=== PATIENT | female | born 1980 ===

== ENCOUNTER 2022-06-11 12:05 | Outpatient (REF) | payer BC, SELFPAY ==
[2022-06-11 14:00] LABS: Hematocrit 43.4 % (37.0-47.0); Hemoglobin 15.9 g/dl (12.0-16.0); Mean Corpuscular HGB Conc 36.6 g/dl (31.0-35.0); Mean Corpuscular Hemoglobin 32.2 pg (27.0-33.0); Mean Corpuscular Volume 87.9 fL (80.0-98.0); Platelet Count 293 X10*3/uL (160-400); Red Blood Count 4.94 X10*6/uL (4.20-5.50); Red Cell Distribution Width 13.2 % (11.0-16.0); White Blood Count 11.6 X10*3/uL (4.8-10.8)
[2022-06-11 14:43] LABS: Erythrocyte Sedimentation Rate 6 MM/HR (0-20)
[2022-06-11 14:48] LABS: Alanine Aminotransferase 171 U/L (0-31); Albumin Level 4.1 g/dL (3.5-5.0); Alkaline Phosphatase 87 U/L (39-117); Anion Gap 18 (12-20); Aspartate Amino Transferase 670 U/L (5-31); Bilirubin Direct 0.2 mg/dL (0.0-0.5); Bilirubin Total 0.5 mg/dL (0.0-1.0); Blood Urea Nitrogen 9 mg/dL (9-16); Calcium 8.4 mg/dL (8.4-10.2); Carbon Dioxide 23 mmol/L (22-29); Chloride 100 mmol/L (96-108); Estimated Glomerular Filt Rate > 60; Glucose Random 68 mg/dL (60-115); Sodium 139 mmol/L (135-145); Total Protein 6.4 g/dL (6.5-8.0)
[2022-06-12 06:07] LABS: Potassium 1.8 mmol/L (3.3-5.1)
== END 2022-06-11 12:06 | disposition home or self-care (01) ==
LOC: HO.HMGCLDS 12:05
PROVIDERS: PCP Internal Medicine; Visit Provider Internal Medicine
DX: R50.9 Fever, unspecified (principal)
CPT/HCPCS: 36415; 80048; 80076; 85027; 85652

== ENCOUNTER 2022-06-18 13:57 | Inpatient (IN) | payer BC, SELFPAY ==
--- NOTE | ~2022-06-18 | CT_ITS ---
EXAMINATION: CT ABDOMEN AND PELVIS WITH CONTRAST CLINICAL INFORMATION: Elevated liver enzymes and lipase COMPARISON: Pelvic ultrasound 08/15/2016, CT abdomen pelvis 08/15/2016 TECHNIQUE: Multidetector volumetric images were obtained from the superior aspect of the liver through the pubic symphysis following administration 85 mL of Omnipaque 350 intravenous contrast. Sagittal and coronal reformatted images were obtained on the technologist's workstation. Oral contrast: No This CT examination was performed using dose optimization techniques as appropriate, variously including the following: *Automated exposure control *Adjustment of mA and/or kV according to patient size (this includes techniques or standardized protocols for targeted exams where dose is matched to indication/reason for exam; i.e. extremities or head) *Use of iterative reconstruction technique DLP: 274 mGy-cm FINDINGS: LUNG BASES: The visualized lung bases are unremarkable. LIVER, GALLBLADDER, AND BILIARY TREE: The liver is normal in size, shape, and attenuation. The left lobe of the liver wraps around the spleen. There is a 9 mm mass centrally in the right lobe of the liver that has appearances suggestive of a hemangioma that has been seen in the past and is unchanged in size (3:13). Polygonal shaped area of hypodensity seen adjacent to the gallbladder may represent focal fat filtration (3:22). No suspicious Focal hepatic lesion or biliary ductal dilatation is present. The gallbladder is unremarkable with no evidence of radiopaque gallstones, gallbladder wall thickening, or obvious pericholecystic inflammatory changes. PANCREAS: Unremarkable. SPLEEN: Unremarkable. ADRENAL GLANDS: Unremarkable. KIDNEYS AND URETERS: The kidneys are normal in size, shape, and attenuation. No hydronephrosis, hydroureter, or calculi seen. No perinephric stranding. BLADDER: Unremarkable. GASTROINTESTINAL TRACT: The small and large bowel are unremarkable. The appendix is unremarkable. ABDOMINAL WALL: No significant hernia is appreciated. LYMPH NODES: No retroperitoneal lymphadenopathy. VASCULAR: Unremarkable. PELVIC VISCERA: An IUD is present in the uterus. An abnormal adnexal mass is not seen. No free intraperitoneal fluid is present. OSSEOUS STRUCTURES: Unremarkable. CT/CT abdomen pelvis w IV con IMPRESSION: 1. A cause for the patient's elevated liver function tests and elevated liver enzymes has not been found. 2. Incidental note made of a stable 9 mm mass in the right lobe of the liver suggestive of a hemangioma. 3. Other incidental findings as described above. Fleischner guidelines were followed.
[2022-06-18 14:37] VITALS: BP 110/53; PULSE 95; RESP 18; TEMP 36.9; O2SAT 98; BMI 19.1
--- NOTE | 2022-06-18 14:46 | ECG_ITS ---
Test Reason : sob/abd pain Blood Pressure : / mmHG Vent. Rate : 091 BPM Atrial Rate : 091 BPM P-R Int : 098 ms QRS Dur : 088 ms QT Int : 384 ms P-R-T Axes : 069 074 039 degrees QTc Int : 472 ms Sinus rhythm with short NJ ST & T wave abnormality, consider anterior ischemia RSR' or QR pattern in V1 suggests right ventricular conduction delay Abnormal ECG When compared with ECG of 02-JUL-2013 13:56, T wave inversion now evident in Anterior leads Referred By: Lavelle Leslie Electronically Signed By:EMILY MEZA MD
--- NOTE | 2022-06-18 14:47 | ED_ITS ---
HPI - Recheck/Abnormal Lab/Rx General Chief Complaint: Recheck/Abnormal Lab/Rx <Lavelle Leslie DO - Last Filed: 06/18/22 14:50> Stated Complaint: abnormal labs <Lavelle Leslie DO - Last Filed: 06/18/22 14:50> Time Seen by Provider: 06/18/22 15:01 <Lavelle Leslie DO - Last Filed: 06/18/22 14:50> Source: patient <Joan Sexton NP - Last Filed: 06/18/22 18:02> Mode of arrival: ambulatory <Joan Sexton NP - Last Filed: 06/18/22 18:02> Limitations: no limitations <Joan Sexton NP - Last Filed: 06/18/22 18:02> History of Present Illness HPI narrative: Is a 42-year-old female who comes into the emergency room for abnormal labs. Per patient last Saturday she was seen at urgent care with complaints of generalized malaise, muscle cramps, fatigue and had outpatient labs. She was called that night to be informed that her potassium level was low and her liver enzymes were elevated. She was referred into the emergency room for further evaluation. Patient tells me that she did not want to go due to her mom having some appointments and so she decided to defer the ER visit. She did start taking potassium 30 mEq daily Saturday. She has been taking that every day. She does feel overall that her muscle cramps are better but she still feels like she has some swelling in her face and in her legs and still feels fatigued. Patient has underlying medical history of bipolar disease which she takes Topamax for and IBS/C which she takes truly ins and intermittent milk of magnesia. No other daily medications. Patient denies substance history. No recent travel or sick contact. <Joan Sexton NP - Last Filed: 06/18/22 18:02> Related Data Home Medications: Home Medications Medication Instructions Recorded Confirmed clonazepam 0.5 mg tablet 0.5 mg PO DAILY PRN anxiety 06/11/22 dextroamphetamine-amphetamine ER 1 cap PO QAM 06/11/22 15 mg 24hr capsule,extend release plecanatide 3 mg tablet (Trulance) 3 mg PO DAILY 06/11/22 topiramate 100 mg tablet 100 - 150 mg PO DAILY depressive 06/11/22 disorder trazodone 150 mg tablet 150 mg PO BEDTIME 06/11/22 prucalopride 2 mg tablet 1 tab PO DAILY 06/18/22 (Motegrity) Previous Rx's Medication Instructions Recorded meloxicam 15 mg tablet 15 mg PO DAILY #14 tabs 06/11/22 <Lavelle Leslie DO - Last Filed: 06/18/22 14:50> Allergies/Adverse Reactions: Allergies Allergy/AdvReac Type Severity Reaction Status Date / Time amoxicillin Allergy Unknown rash, Verified 06/11/22 11:20 flushing, hives clavulanic acid [Augmentin] Allergy Unknown rash Verified 06/11/22 11:20 lamotrigine Allergy Unknown malgorzata Verified 06/11/22 11:20 marilin ranitidine AdvReac Unknown stomach Verified 06/11/22 11:20 upset, breast s swell <Lavelle Leslie DO - Last Filed: 06/18/22 14:50> Review of Systems Review of Systems: Yes all other systems are reviewed and are negative <Anny Sexton NP - Last Filed: 06/18/22 18:02> Constitutional: Constitutional: Reports no additional constitutional complaints, Denies body ache(s), Denies chills, Reports fatigue, Denies fever(s), Denies headache(s) and Denies weakness <Joan Sexton NP - Last Filed: 06/18/22 18:02> Eyes: Eyes: Reports no additional eye complaints and Denies change in vision <Joan Sexton NP - Last Filed: 06/18/22 18:02> ENT: Reports system reviewed and no additional complaints, except as documented, Denies dizziness, Denies headache(s), Denies nasal congestion, Denies nasal discharge and Denies neck pain <Joan Sexton NP - Last Filed: 06/18/22 18:02> Cardiovascular: Cardiovascular: Reports no additional cardiovascular complaints, Denies chest pain, Denies leg edema and Denies dyspnea <Joan Sexton NP - Last Filed: 06/18/22 18:02> Respiratory: Respiratory: Reports no additional respiratory complaints, Denies cough and Denies dyspnea <Joan Sexton NP - Last Filed: 06/18/22 18:02> Gastrointestinal: Gastrointestinal: Reports no additional gastrointestinal complaints, Denies abdominal pain, Denies diarrhea, Denies nausea and Denies vomiting <Joan Sexton NP - Last Filed: 06/18/22 18:02> Genitourinary: Genitourinary: Reports no additional female genitourinary complaints and Denies urinary incontinence <Joan Sexton NP - Last Fi led: 06/18/22 18:02> Musculoskeletal: Musculoskeletal: Reports no additional musculoskeletal complaints, Denies back pain, Denies arthralgias, Denies joint swelling, Reports muscle cramps, Denies neck pain, Denies numbness and Denies tingling <Joan Sexton NP - Last Filed: 06/18/22 18:02> Integumentary/Breasts: Skin/Breast: Reports system reviewed and no additional complaints, except as docu and Denies rash <Joan Sexton NP - Last Filed: 06/18/22 18:02> Neurologic: Reports system reviewed and no additional complaints, except as documented, Denies Abnormal speech present, Denies dizziness, Denies headache(s), Denies numbness, Denies tingling and Denies weakness <Joan Sexton NP - Last Filed: 06/18/22 18:02> Endocrine: Endocrine: Reports fatigue <Joan Sexton NP - Last Filed: 06/18/22 18:02> [facility] Past Medical History Attestation statement: The following information was validated with the patient. <Joan Sexton NP - Last Filed: 06/18/22 18:02> Source: old records reviewed and nursing notes reviewed <Joan Sexton NP - Last Filed: 06/18/22 18:02> Medical History: Medical History ASCUS (atypical squamous cells of undetermined significance) on gynecologic Papanicolaou smear complicating , antepartum Asthma Bipolar disorder Dialysis patient Irritable bowel syndrome Optic neuritis Polysubstance abuse <Lavelle Leslie DO - Last Filed: 06/18/22 14:50> Surgical History: Surgical History History of sinus surgery <Lavelle Leslie DO - Last Filed: 06/18/22 14:50> Family History Family History: Family History Family/Other No problems noted. <Lavelle Leslie DO - Last Filed: 06/18/22 14:50> Social History Social History: Social History Advance Directives: No Advance Directives Information Provided: Yes <Lavelle Leslie DO - Last Filed: 06/18/22 14:50> Physical Exam Vital Signs: Vital Signs: Last Vital Signs Temp 98.2 F 06/18/22 15:20 Pulse 78 06/18/22 15:20 Resp 16 06/18/22 15:20 BP 106/61 06/18/22 15:20 Pulse Ox 100 06/18/22 15:20 O2 Del Method 06/18/22 15:20 BMI result Body Mass Index 19.1 <Lavelle Leslie DO - Last Filed: 06/18/22 14:50> Vital Signs: Last Vital Signs Temp 98.2 F 06/18/22 15:20 Pulse 78 06/18/22 15:20 Resp 16 06/18/22 15:20 BP 106/61 06/18/22 15:20 Pulse Ox 100 06/18/22 15:20 O2 Del Method 06/18/22 15:20 BMI result Body Mass Index 19.1 <Joan Sexton NP - Last Filed: 06/18/22 18:02> Const: General: cooperative, healthy appearing, comfortable and no acute distress <Joan Sexton NP - Last Filed: 06/18/22 18:02> Orientation/consciousness: patient oriented x3 <Joan Sexton NP - Last Filed: 06/18/22 18:02> Limitations: no limitations <Joan Sexton NP - Last Filed: 06/18/22 18:02> HEENT: Head: Yes normal to inspection <Joan Sexton NP - Last Filed: 06/18/22 18:02> Ears: hearing grossly normal bilaterally <Joan Sexton NP - Last Filed: 06/18/22 18:02> General nose exam: Normal external nose present <Joan Sexton NP - Last Filed: 06/18/22 18:02> Face and sinus: Yes normal facial exam <Joan Sexton NP - Last Filed: 06/18/22 18:02> Mouth: Normal oral and palatal mucosa present <Joan Sexton [employer] - Last Filed: 06/18/22 18:02> Throat: Yes posterior oropharynx normal <Joan Sexton NP - Last Filed: 06/18/22 18:02> Eyes: General: appearance normal, both eyes and all related structures <Joan Sexton NP - Last Filed: 06/18/22 18:02> Pupils: Equal, round and reactive pupils present <Joan Sexton NP - Last Filed: 06/18/22 18:02> Neck: Neck: Yes normal visual inspection <Joan Sexton [employer] - Last Filed: 06/18/22 18:02> Chest: Chest palpation & inspection: normal inspection of the chest <Joan Sexton NP - Last Filed: 06/18/22 18:02> Resp: Effort & Inspection: normal respiratory effort <Joan Sexton NP - Last Filed: 06/18/22 18:02> Auscultation: clear to auscultation bilaterally <Joan Sexton [employer] - Last Filed: 06/18/22 18:02> Cardio: Rate: regular rate <Joan Sexton NP - Last Filed: 06/18/22 18:02> Rhythm: regular rhythm <Joan Sexton NP - Last Filed: 06/18/22 18:02> Peripheral pulses: Peripheral pulses 2+ throughout <Joan Sexton NP - Last Filed: 06/18/22 18:02> GI: Inspection: Yes normal to inspection <Joan Sexton NP - Last Filed: 06/18/22 18:02> Palpation (GI): Soft to palpation and nontender <Joan Sexton NP - Last Filed: 06/18/22 18:02> Auscultation: normal bowel sounds <Joan Sexton NP - Last Filed: 06/18/22 18:02> Back/Spine/Pelvis: Thoracic/Lumbar Spine: thoracic and lumbar spine normal to inspection <Joan Sexton NP - Last Filed: 06/18/22 18:02> Skin: General skin exam: no rashes or lesions noted <Joan Sexton NP - Last Filed: 06/18/22 18:02> Neuro: General: patient oriented x3, no focal motor deficits and normal sensation to monofilament <Joan Sexton NP - Last Filed: 06/18/22 18:02> Cranial nerves: Yes Equal, round and reactive pupils present <Joan Sexton NP - Last Filed: 06/18/22 18:02> Cognition (Neuro): normal cognition <Joan Sexton NP - Last Filed: 06/18/22 18:02> Speech: No Abnormal speech present <Joan Sexton NP - Last Filed: 06/18/22 18:02> Gait exam (Neuro): Normal gait present <Joan Sexton NP - Last Filed: 06/18/22 18:02> Motor exam (neuro): 5/5 motor strength present throughout <Joan Sexton NP - Last Filed: 06/18/22 18:02> Extrem: General: Yes normal to inspection, Yes no pedal edema and Yes no calf tenderness <Joan Sexton NP - Last Filed: 06/18/22 18:02> Course Course Course Narrative: Patient seen in triage as a medical screening exam. Patient here with low potassiuim 8 days ago. a K of 1.8. She has been on potassium supplements and eating well since then. She admits to losing weight and having issues with diet. She also start adderall one month ago. She states she has had issues with her kidneys in the past but never low potassium. She does have some associated body aches but no vomiting diarrhea fever. I will recheck labs and potassium with a magnesium level. I will have the patient seen by another provider after the labs are resulted for ultimate diagnosis and disposition <Lavelle Leslie DO - Last Filed: 06/18/22 14:50> Reevaluation(s) Reevaluation #1: 1613-labs show potassium 3.5. Magnesium is normal. Mildly elevated AST and ALT year although are better than previous, Add on Tylenol level, CPK, hepatitis panel due to recent travel Will check CT <Joan Sexton NP - Last Filed: 06/18/22 18:02> Reevaluation #2: Elevated CPK. Will give IVF, admit <Joan Sexton NP - Last Filed: 06/18/22 18:02> Reevaluation #3: 1800-spoke to Dr. Tam who accepted admission <Joan Sexton NP - Last Filed: 06/18/22 18:02> Medications Administered Discontinued Medications Generic Name Dose Route Start Last Admin Trade Name Freq PRN Reason Stop Dose Admin Sodium Chloride 1,000 mls @ 999 mls/hr 06/18/22 16:51 06/18/22 17:18 Ns IV 06/18/22 17:51 999 mls/hr .Q1H1M STA Administration Iohexol 100 ml 06/18/22 16:35 06/18/22 16:36 Iohexol 350 Mg/Ml 100 Ml Infus..Btl IV 06/18/22 16:36 85 ml ONCE ONE Administration <Lavelle Leslie DO - Last Filed: 06/18/22 14:50> Medications Administered Discontinued Medications Generic Name Dose Route Start Last Admin Trade Name Freq PRN Reason Stop Dose Admin Sodium Chloride 1,000 mls @ 999 mls/hr 06/18/22 16:51 06/18/22 17:18 Ns IV 06/18/22 17:51 999 mls/hr .Q1H1M STA Administration Iohexol 100 ml 06/18/22 16:35 06/18/22 16:36 Iohexol 350 Mg/Ml 100 Ml Infus..Btl IV 06/18/22 16:36 85 ml ONCE ONE Administration <Joan Sexton NP - Last Filed: 06/18/22 18:02> MDM - Recheck/Abnormal Lab/Rx MDM Narrative Medical decision making narrative: 42-year-old female with history of bipolar disorder, IBS presents with abnormal labs which were drawn outpatient 8 days ago which showed a potassium of 1.8 and elevated AST and ALT. Patient has been taking potassium supplements. Overall she is feeling improved but not 100%. Still complains of fatigue and muscle cramps as well as swelling in her legs and her face. Will check labs, EKG <Joan Sexton NP - Last Filed: 06/18/22 18:02> Medical Records Attestation: I reviewed the patient's medical records. <Joan Sexton NP - Last Filed: 06/18/22 18:02> Lab Data Attestation: I reviewed the patient's lab results. <Joan Sexton NP - Last Filed: 06/18/22 18:02> Result diagrams: : 06/18/22 15:17 06/18/22 15:17 <Lavelle Leslie DO - Last Filed: 06/18/22 14:50> Labs: Lab Results 06/18/22 06/18/22 06/18/22 Range/Units 15:17 15:17 15:59 WBC 7.4 (4.8-10.8) X10*3/uL RBC 3.99 L (4.20-5.50) X10*6/uL Hgb 12.8 (12.0-16.0) g/dl Hct 37.7 (37.0-47.0) % MCV 94.5 (80.0-98.0) fL MCH 32.1 (27.0-33.0) pg MCHC 34.0 (31.0-35.0) g/dl RDW 13.2 (11.0-16.0) % Plt Count 267 (160-400) X10*3/uL MPV 9.3 L (9.4-12.3) fL Immature Gran % (Auto) 0.3 (0.0-0.4) % Neut % (Auto) 61.2 (45-73) % Lymph % (Auto) 26.0 (20-40) % [place] % (Auto) 9.9 (2-11) % Eos % (Auto) 1.9 (0-4) % Baso % (Auto) 0.7 (0-2) % Lymph # (Auto) 1.9 (1.2-4.9) X10*3/uL [place] # (Auto) 0.7 (0.1-1.2) X10*3/uL Eos # (Auto) 0.1 (0.0-0.4) X10*3/uL Baso # (Auto) 0.1 (0.0-0.2) X10*3/uL Abs Immat Gran (auto) 0.02 (0.00-0.03) X10*3/uL Absolute Neuts (auto) 4.5 (2.0-8.3) x10*3/uL Absolute Nucleated RBC 0.000 (0.0-0.012) X10*3/uL Nucleated RBC % (auto) 0.0 (0.0-0.2) /100WBC Sodium 140 (135-145) mmol/L Potassium 3.5 D (3.3-5.1) mmol/L Chloride 110 H (96-108) mmol/L Carbon Dioxide 24 (22-29) mmol/L Anion Gap 10 L (12-20) BUN 11 (9-16) mg/dL Creatinine 0.68 (0.5-1.4) mg/dL Estim Creat Clear Calc 72.5 Estimated GFR > 60 Random Glucose 89 (60-115) mg/dL Calcium 8.5 (8.4-10.2) mg/dL Magnesium 2.1 (1.6-2.6) mg/dL Total Bilirubin 0.2 (0.0-1.0) mg/dL Direct Bilirubin < 0.2 (0.0-0.5) mg/dL AST 129 H (5-31) U/L ALT 246 H (0-31) U/L Alkaline Phosphatase 57 (39-117) U/L Total Creatine Kinase 3431 H (26-140) U/L Total Protein 5.3 L (6.5-8.0) g/dL Albumin 3.4 L (3.5-5.0) g/dL Lipase 83 H (8-78) U/L Urine Color Urine Appearance Urine pH (5.0-9.0) Ur Specific [place] (1.005-1.025) Urine Protein (Neg-Trace) mg/dL Urine Glucose (UA) (Negative) mg/dL Urine Ketones (Negative) mg/dL Urine Blood (Negative) Urine Nitrite (Negative) Ur Leukocyte Esterase (Negative) Urine Test NEGATIVE (NEGATIVE) Urine Opiates Screen (Not Detect) Urine Fentanyl Screen (Not Detect) Acetaminophen < 1 (<30) mcg/mL Ur Barbiturates Screen (Not Detect) Ur Phencyclidine Scrn (Not Detect) Ur Amphetamines Screen (Not Detect) U Benzodiazepines Scrn (Not Detect) Urine Cocaine Screen (Not Detect) U Marijuana (THC) Screen (Not Detect) COVID-19 (WANDA) (Negative) COVID-19 Clin Com 06/18/22 06/18/22 06/18/22 Range/Units 16:19 16:19 17:12 WBC (4.8-10.8) X10*3/uL RBC (4.20-5.50) X10*6/uL Hgb (12.0-16.0) g/dl Hct (37.0-47.0) % MCV (80.0-98.0) fL MCH (27.0-33.0) pg MCHC (31.0-35.0) g/dl RDW (11.0-16.0) % Plt Count (160-400) X10*3/uL MPV (9.4-12.3) fL Immature Gran % (Auto) (0.0-0.4) % Neut % (Auto) (45-73) % Lymph % (Auto) (20-40) % [place] % (Auto) (2-11) % Eos % (Auto) (0-4) % Baso % (Auto) (0-2) % Lymph # (Auto) (1.2-4.9) X10*3/uL [place] # (Auto) (0.1-1.2) X10*3/uL Eos # (Auto) (0.0-0.4) X10*3/uL Baso # (Auto) (0.0-0.2) X10*3/uL Abs Immat Gran (auto) (0.00-0.03) X10*3/uL Absolute Neuts (auto) (2.0-8.3) x10*3/uL Absolute Nucleated RBC (0.0-0.012) X10*3/uL Nucleated RBC % (auto) (0.0-0.2) /100WBC Sodium (135-145) mmol/L Potassium (3.3-5.1) mmol/L Chloride (96-108) mmol/L Carbon Dioxide (22-29) mmol/L Anion Gap (12-20) BUN (9-16) mg/dL Creatinine (0.5-1.4) mg/dL Estim Creat Clear Calc Estimated GFR Random Glucose (60-115) mg/dL Calcium (8.4-10.2) mg/dL Magnesium (1.6-2.6) mg/dL Total Bilirubin (0.0-1.0) mg/dL Direct Bilirubin (0.0-0.5) mg/dL AST (5-31) U/L ALT (0-31) U/L Alkaline Phosphatase (39-117) U/L Total Creatine Kinase (26-140) U/L Total Protein (6.5-8.0) g/dL Albumin (3.5-5.0) g/dL Lipase (8-78) U/L Urine Color Yellow Urine Appearance Clear Urine pH 7.5 (5.0-9.0) Ur Specific [place] <= 1.005 (1.005-1.025) Urine Protein Negative (Neg-Trace) mg/dL Urine Glucose (UA) Negative (Negative) mg/dL Urine Ketones Negative (Negative) mg/dL Urine Blood Negative (Negative) Urine Nitrite Negative (Negative) Ur Leukocyte Esterase Negative (Negative) Urine Test (NEGATIVE) Urine Opiates Screen Not Detected (Not Detect) Urine Fentanyl Screen Not Detected (Not Detect) Acetaminophen (<30) mcg/mL Ur Barbiturates Screen Not Detected (Not Detect) Ur Phencyclidine Scrn Not Detected (Not Detect) Ur Amphetamines Screen Not Detected (Not Detect) U Benzodiazepines Scrn Not Detected (Not Detect) Urine Cocaine Screen Not Detected (Not Detect) U Marijuana (THC) Screen Not Detected (Not Detect) COVID-19 (WANDA) Negative (Negative) COVID-19 Clin Com See Note <Lavelle Leslie, DO - Last Filed: 06/18/22 14:50> Lab Results 11/21/22 11/21/22 11/21/22 Range/Units 15:17 15:17 15:59 WBC 7.4 (4.8-10.8) X10*3/uL RBC 3.99 L (4.20-5.50) X10*6/uL Hgb 12.8 (12.0-16.0) g/dl Hct 37.7 (37.0-47.0) % MCV 94.5 (80.0-98.0) fL MCH 32.1 (27.0-33.0) pg MCHC 34.0 (31.0-35.0) g/dl RDW 13.2 (11.0-16.0) % Plt Count 267 (160-400) X10*3/uL MPV 9.3 L (9.4-12.3) fL Immature Gran % (Auto) 0.3 (0.0-0.4) % Neut % (Auto) 61.2 (45-73) % Lymph % (Auto) 26.0 (20-40) % [place] % (Auto) 9.9 (2-11) % Eos % (Auto) 1.9 (0-4) % Baso % (Auto) 0.7 (0-2) % Lymph # (Auto) 1.9 (1.2-4.9) X10*3/uL [place] # (Auto) 0.7 (0.1-1.2) X10*3/uL Eos # (Auto) 0.1 (0.0-0.4) X10*3/uL Baso # (Auto) 0.1 (0.0-0.2) X10*3/uL Abs Immat Gran (auto) 0.02 (0.00-0.03) X10*3/uL Absolute Neuts (auto) 4.5 (2.0-8.3) x10*3/uL Absolute Nucleated RBC 0.000 (0.0-0.012) X10*3/uL Nucleated RBC % (auto) 0.0 (0.0-0.2) /100WBC Sodium 140 (135-145) mmol/L Potassium 3.5 D (3.3-5.1) mmol/L Chloride 110 H (96-108) mmol/L Carbon Dioxide 24 (22-29) mmol/L Anion Gap 10 L (12-20) BUN 11 (9-16) mg/dL Creatinine 0.68 (0.5-1.4) mg/dL Estim Creat Clear Calc 72.5 Estimated GFR > 60 Random Glucose 89 (60-115) mg/dL Calcium 8.5 (8.4-10.2) mg/dL Magnesium 2.1 (1.6-2.6) mg/dL Total Bilirubin 0.2 (0.0-1.0) mg/dL Direct Bilirubin < 0.2 (0.0-0.5) mg/dL AST 129 H (5-31) U/L ALT 246 H (0-31) U/L Alkaline Phosphatase 57 (39-117) U/L Total Creatine Kinase 3431 H (26-140) U/L Total Protein 5.3 L (6.5-8.0) g/dL Albumin 3.4 L (3.5-5.0) g/dL Lipase 83 H (8-78) U/L Urine Color Urine Appearance Urine pH (5.0-9.0) Ur Specific [place] (1.005-1.025) Urine Protein (Neg-Trace) mg/dL Urine Glucose (UA) (Negative) mg/dL Urine Ketones (Negative) mg/dL Urine Blood (Negative) Urine Nitrite (Negative) Ur Leukocyte Esterase (Negative) Urine Test NEGATIVE (NEGATIVE) Urine Opiates Screen (Not Detect) Urine Fentanyl Screen (Not Detect) Acetaminophen < 1 (<30) mcg/mL Ur Barbiturates Screen (Not Detect) Ur Phencyclidine Scrn (Not Detect) Ur Amphetamines Screen (Not Detect) U Benzodiazepines Scrn (Not Detect) Urine Cocaine Screen (Not Detect) U Marijuana (THC) Screen (Not Detect) COVID-19 (WANDA) (Negative) COVID-19 Clin Com 06/18/22 06/18/22 06/18/22 Range/Units 16:19 16:19 17:12 WBC (4.8-10.8) X10*3/uL RBC (4.20-5.50) X10*6/uL Hgb (12.0-16.0) g/dl Hct (37.0-47.0) % MCV (80.0-98.0) fL MCH (27.0-33.0) pg MCHC (31.0-35.0) g/dl RDW (11.0-16.0) % Plt Count (160-400) X10*3/uL MPV (9.4-12.3) fL Immature Gran % (Auto) (0.0-0.4) % Neut % (Auto) (45-73) % Lymph % (Auto) (20-40) % [place] % (Auto) (2-11) % Eos % (Auto) (0-4) % Baso % (Auto) (0-2) % Lymph # (Auto) (1.2-4.9) X10*3/uL [place] # (Auto) (0.1-1.2) X10*3/uL Eos # (Auto) (0.0-0.4) X10*3/uL Baso # (Auto) (0.0-0.2) X10*3/uL Abs Immat Gran (auto) (0.00-0.03) X10*3/uL Absolute Neuts (auto) (2.0-8.3) x10*3/uL Absolute Nucleated RBC (0.0-0.012) X10*3/uL Nucleated RBC % (auto) (0.0-0.2) /100WBC Sodium (135-145) mmol/L Potassium (3.3-5.1) mmol/L Chloride (96-108) mmol/L Carbon Dioxide (22-29) mmol/L Anion Gap (12-20) BUN (9-16) mg/dL Creatinine (0.5-1.4) mg/dL Estim Creat Clear Calc Estimated GFR Random Glucose (60-115) mg/dL Calcium (8.4-10.2) mg/dL Magnesium (1.6-2.6) mg/dL Total Bilirubin (0.0-1.0) mg/dL Direct Bilirubin (0.0-0.5) mg/dL AST (5-31) U/L ALT (0-31) U/L Alkaline Phosphatase (39-117) U/L Total Creatine Kinase (26-140) U/L Total Protein (6.5-8.0) g/dL Albumin (3.5-5.0) g/dL Lipase (8-78) U/L Urine Color Yellow Urine Appearance Clear Urine pH 7.5 (5.0-9.0) Ur Specific [place] <= 1.005 (1.005-1.025) Urine Protein Negative (Neg-Trace) mg/dL Urine Glucose (UA) Negative (Negative) mg/dL Urine Ketones Negative (Negative) mg/dL Urine Blood Negative (Negative) Urine Nitrite Negative (Negative) Ur Leukocyte Esterase Negative (Negative) Urine Test (NEGATIVE) Urine Opiates Screen Not Detected (Not Detect) Urine Fentanyl Screen Not Detected (Not Detect) Acetaminophen (<30) mcg/mL Ur Barbiturates Screen Not Detected (Not Detect) Ur Phencyclidine Scrn Not Detected (Not Detect) Ur Amphetamines Screen Not Detected (Not Detect) U Benzodiazepines Scrn Not Detected (Not Detect) Urine Cocaine Screen Not Detected (Not Detect) U Marijuana (THC) Screen Not Detected (Not Detect) COVID-19 (WANDA) Negative (Negative) COVID-19 Clin Com See Note <Joan Sexton NP - Last Filed: 06/18/22 18:02> Imaging Data CT scan - abdomen: Attestation: I personally reviewed and interpreted this imaging study as follows: <Joan Sexton NP - Last Filed: 06/18/22 18:02> Radiologist's impression: FINDINGS: LUNG BASES: The visualized lung bases are unremarkable.? LIVER, GALLBLADDER, AND BILIARY TREE: The liver is normal in size, shape, and attenuation. The left lobe of the liver wraps around the spleen. There is a 9 mm mass centrally in the right lobe of the liver that has appearances suggestive of a hemangioma that has been seen in the past and is unchanged in size (3:13). Polygonal shaped area of hypodensity seen adjacent to the gallbladder may represent focal fat filtration (3:22). No suspicious Focal hepatic lesion or biliary ductal dilatation is present. The gallbladder is unremarkable with no evidence of radiopaque gallstones, gallbladder wall thickening, or obvious pericholecystic inflammatory changes.? PANCREAS: Unremarkable.? SPLEEN: Unremarkable.? ADRENAL GLANDS: Unremarkable.? KIDNEYS AND URETERS: The kidneys are normal in size, shape, and attenuation. No hydronephrosis, hydroureter, or calculi seen. No perinephric stranding. ? BLADDER: Unremarkable.? GASTROINTESTINAL TRACT: The small and large bowel are unremarkable. The appendix is unremarkable.? ABDOMINAL WALL: No significant hernia is appreciated.? LYMPH NODES: No retroperitoneal lymphadenopathy. VASCULAR: Unremarkable. PELVIC VISCERA: An IUD is present in the uterus. An abnormal adnexal mass is not seen. No free intraperitoneal fluid is present.? OSSEOUS STRUCTURES: Unremarkable.? CT/CT abdomen pelvis w IV con IMPRESSION: 1.? A cause for the patient's elevated liver function tests and elevated liver enzymes has not been found. 2.? Incidental note made of a stable 9 mm mass in the right lobe of the liver suggestive of a hemangioma. 3.? Other incidental findings as described above. <Joan Sexton NP - Last Filed: 06/18/22 18:02> ECG Data Attestation: I personally reviewed and interpreted this ECG as follows: <Joan Sexton NP - Last Filed: 06/18/22 18:02> ECG interpretation date: 06/18/22 <Joan Sexton NP - Last Filed: 06/18/22 18:02> ECG interpretation time: 14:47 <Joan Sexton NP - Last Filed: 06/18/22 18:02> Interpretation: Sinus rhythm with short [place], normal QRS, normal QT <Joan Sexton NP - Last Filed: 06/18/22 18:02> Discharge Plan Discharge Clinical Impression: Rhabdomyolysis, Elevated liver enzymes <DO Maxim Kruse Last Filed: 06/18/22 14:50> Patient Disposition: Admitted As Inpatient <DO Maxim Kruse Last Filed: 06/18/22 14:50>
[2022-06-18 15:20] VITALS: BP 106/61; PULSE 78; RESP 16; TEMP 36.8; O2SAT 100
[2022-06-18 15:20] LABS: MANUAL DIFF FLAG NO
[2022-06-18 15:22] LABS: Basophils Absolute Auto 0.1 X10*3/uL (0.0-0.2); Basophils Percent Auto 0.7 % (0-2); Eosinophils Absolute Auto 0.1 X10*3/uL (0.0-0.4); Eosinophils Percent Auto 1.9 % (0-4); Hematocrit 37.7 % (37.0-47.0); Hemoglobin 12.8 g/dl (12.0-16.0); Imm Gran Abs Auto 0.02 X10*3/uL (0.00-0.03); Imm Gran Pct Auto 0.3 % (0.0-0.4); Lymphocytes Absolute Auto 1.9 X10*3/uL (1.2-4.9); Mean Corpuscular Hemoglobin 32.1 pg (27.0-33.0); Mean Corpuscular Volume 94.5 fL (80.0-98.0); Mean Platelet Volume 9.3 fL (9.4-12.3); Monocytes Absolute Auto 0.7 X10*3/uL (0.1-1.2); Monocytes Percent Auto 9.9 % (2-11); Neutrophils Absolute Auto 4.5 x10*3/uL (2.0-8.3); Neutrophils Percent Auto 61.2 % (45-73); Platelet Count 267 X10*3/uL (160-400); Red Blood Count 3.99 X10*6/uL (4.20-5.50); Red Cell Distribution Width 13.2 % (11.0-16.0); White Blood Count 7.4 X10*3/uL (4.8-10.8)
[2022-06-18 15:38] LABS: Alanine Aminotransferase 246 U/L (0-31); Albumin Level 3.4 g/dL (3.5-5.0); Alkaline Phosphatase 57 U/L (39-117); Anion Gap 10 (12-20); Aspartate Amino Transferase 129 U/L (5-31); Bilirubin Direct < 0.2 mg/dL (0.0-0.5); Bilirubin Total 0.2 mg/dL (0.0-1.0); Blood Urea Nitrogen 11 mg/dL (9-16); Calcium 8.5 mg/dL (8.4-10.2); Carbon Dioxide 24 mmol/L (22-29); Chloride 110 mmol/L (96-108); Creatinine Clr Calc Pharmacy 72.5; Estimated Glomerular Filt Rate > 60; Glucose Random 89 mg/dL (60-115); Lipase 83 U/L (8-78); Magnesium 2.1 mg/dL (1.6-2.6); Potassium 3.5 mmol/L (3.3-5.1); Sodium 140 mmol/L (135-145); Total Protein 5.3 g/dL (6.5-8.0)
[2022-06-18 16:16] LABS: UPreg QC Valid YES; Urine Pregnancy NEGATIVE (NEGATIVE)
[2022-06-18 16:26] LABS: Appearance Urine Clear; Color Urine Yellow; Glucose Urine UA Negative (Negative); Leukocyte Esterase Urine Negative (Negative); Nitrite Urine Negative (Negative); PH 7.5 (5.0-9.0); Specific Gravity - Urine <= 1.005 (1.005-1.025); Urine Blood Negative (Negative); Urine Ketones Negative (Negative); Urine Protein Negative (Neg-Trace)
[2022-06-18] MEDS: iohexoL 350 MG/ML 100 ML INFUS..BTL IV (16:36)
[2022-06-18 16:50] LABS: Acetaminophen LAB < 1 mcg/mL (<30)
[2022-06-18] MEDS: 0.9 % Sodium Chloride 1,000 ML 999 ML IV (17:18)
[2022-06-18 17:26] LABS: Amphetamine Screen Urine Not Detected (Not Detect); Barbiturates, Urine Not Detected (Not Detect); Benzodiazepines Screen Urine Not Detected (Not Detect); Cannabinoid Screen Urine Not Detected (Not Detect); Cocaine Screen Urine Not Detected (Not Detect); Fentanyl, urine Not Detected (Not Detect); Opiate Screen Urine Not Detected (Not Detect); Phencyclidine Screen Urine Not Detected (Not Detect)
[2022-06-18 17:54] LABS: COVID-19 Test Negative (Negative); IDNOW Serial# 16C4AD1C
[2022-06-18 18:07] VITALS: BP 107/55; PULSE 88; RESP 18; O2SAT 99
--- NOTE | 2022-06-18 18:07 | PHA.MEDREC ---
Addendum entered by Elijah Valdes RPh 06/18/22 18:54: PT IS SURE THEY TAKE 250MG TOTAL OF TOPAMAX A DAY. SHE ALSO TAKES ZENWISE OTC TID Original Note: Pharmacy Consult ? Medication Reconciliation Pharmacy has completed the medication reconciliation. [facility] states they no longer take motegrity. Will clarify topamax dose with patient Ramakrishna
--- NOTE | 2022-06-18 18:38 | PM.EVENT ---
Event Note Date of Service: 06/18/22 Event Note: This patient is seen and examined with APC. Patient came to the hospital for muscle ache, tiredness and exhaustion- as per the patient she had a recent trip to [place] -which she has viralsymptoms- headache, myalgia, tiredness weakness, nausea vomiting and diarrhea, in addition poor oral intake. Last week seen by had PCP her potassium was 1.8, elevated LFTs. today comes to the hospital because still feel tired and muscle ache which is better than before. in the ED found to have [id number] range, mildly elevated LFTs, physical exam: Please seeAPC note. Has leg pains. Lab imaging, EKG reviewed. rhabdo CPK in3 3000 raknge, AST ALT reviewed slightly elevated, CT abdomen shows?Incidental note made of a stable 9 mm mass in the right lobe of the liver suggestive of a hemangioma. Physical exam and assessment and plan coordinated in APCs note, Agree with the plan in addition: rhabdomyolysis: multifactorial secondary to viral syndrome/ hypokalemia severe last week. Hepatitis profile added by ED. will add are res panel added fluid, need GI evaluation considering elevated liver enzymes and hemangioma. Monitor CPK
--- NOTE | 2022-06-18 18:45 | P.HPHOSP_ITS ---
History of Present Illness Date of Service: 06/18/22 Attending physician on admission: Alivia Tam Chief Complaint: muscle aches, fatigue 42-year-old female with history of bipolar disorder, history of intentional ethylene glycol overdose requiring dialysis acutely, gastritis, history polysubstance abuse, and chronic slow transit constipation presented to the ED this morning for evaluation of muscle aches and fatigue. She was seen at a local urgent care 1 week ago after developing diffuse myalgias and general malaise. Found to have severe hypokalemia 1.8 with elevated liver enzymes with AST 670, ALT 171. She was advised by her PCP to present to the ED but she was unable to do so according to the patient. She was instead given 30 mEq oral KCl to take daily for potassium repletion. She had been feeling slightly better but than 4 days ago again felt very fatigued and developed slurred speech with facial swelling, myalgias, and tension in her jaw. She does tell me she has a long history of intermittent vomiting and follows with Gastroenterology was told this was related to gastritis. She has also had intermittent episodes of diarrhea over the last week with RUAQ/epigastric discomfort/bloating and has developed very dark colored urine. Of note, she was traveling prior to onset of symptoms in [place] visiting her boyfriend who does not have similar symptoms. She has also developed headache and earache. She does state that she has had anorexia since onset of symptoms with poor oral intake but denies any intentional restriction. She denies any injury. On arrival VSS. No leukocytosis, no anemia. Creatinine 0.68, BUN 11. Sodium 140, potassium 3.5, chloride 110, CO2 24. AST 129, ALT 246 today, alk-phos 57, CK 3431, protein 5.3, albumin 3.4, lipase 83. UA unremarkable, UTox screen negative. Hepatitis panel pending. CT of the abdomen/pelvis with a stable 9 mm mass in the right lobe of the liver suggestive of hemangioma. Review of Systems Review of Systems: General: No fevers, malaise, unintentional weight loss HEENT: +ear pain. No blurred vision, diplopia. No sore throat, nasal congestion, rhinorrhea, sinus pain Cardiovascular: No chest pain, palpitations, or leg edema Respiratory: No shortness of breath, wheezing, cough GI: +RUQ/epigastric pain, +nausea, +vomiting, +diarrhea, +constipation. No melena, hematochezia : +dark urine. No dysuria, hematuria, increased urinary frequency, decreased urinary output MSK: +diffuse myalgia. Neuro: No headaches, weakness, paresthesias Skin: No rashes or lesions [facility] Medical History ASCUS (atypical squamous cells of undetermined significance) on gynecologic Papanicolaou smear complicating , antepartum Asthma Bipolar disorder Dialysis patient Irritable bowel syndrome Optic neuritis Polysubstance abuse Family History Family/Other No problems noted. Other Family history not known due to adoption Surgical History History of sinus surgery Social History Household Members: Other Household Members Other:: mother and father Housing: House Do you presently have visiting nurse or other home services: No Alcohol intake: never Patient Tobacco Use Status: Former Tobacco user Use of substances other than those prescribed or required for medical reasons: No Currently Displaying Signs/Symptoms of Drug Intoxication Withdrawal: No Have you been hit, kicked, punched, or otherwise hurt by someone within the past year? If so, by whom?: No Do you feel safe in your current relationship?: Yes Is there a partner from a previous relationship who is making you feel unsafe now?: No Are you made to feel afraid or neglected: No Sabianism Healthcare Practices: uatsdin Advance Directives: No Advance Directives Information Provided: Yes Do you have thoughts of harming others: None Do you have a plan to hurt others: No Plan Recently lost weight without trying: No Nutrition Risks: No Nutritional Risk Patient : No : No Poor oral hygiene: No service: No Current occupational status: employed Meds Allergies Allergy/AdvReac Type Severity Reaction Status Date / Time amoxicillin Allergy Unknown rash, Verified 06/11/22 11:20 flushing, hives clavulanic acid [Augmentin] Allergy Unknown rash Verified 06/11/22 11:20 lamotrigine Allergy Unknown malgorzata Verified 06/11/22 11:20 marilin ranitidine AdvReac Unknown stomach Verified 06/11/22 11:20 upset, breast s swell Active Medications: Current Medications Lactated Ringer's (Lr) 1,000 mls @ 125 mls/hr IVCONT .Q8H [facility] Pharmacy Consult (Consult Rx Perform Med Rec) 1 each MISCELLANE ONCE PRN PRN Reason: Consult order Sodium Chloride (0.9 % Sodium Chloride Flush 3 Ml Syringe) 3 ml IVFLUSH QSHIFT [facility] Home Medications Medication Instructions Recorded Confirmed Last Taken Type clonazepam 0.5 mg tablet 0.25 - 0.5 mg PO BEDTIME PRN 06/11/22 06/18/22 Unknown History anxiety dextroamphetamine-amphetamine ER 1 cap PO MOTUWETHFR 06/11/22 06/18/22 06/18/22 History 15 mg 24hr capsule,extend release plecanatide 3 mg tablet (Trulance) 3 mg PO BEDTIME 06/11/22 06/18/22 06/17/22 History topiramate 100 mg tablet 150 mg PO DAILY depressive disorder 06/11/22 06/18/22 Unknown History trazodone 150 mg tablet 150 mg PO BEDTIME 06/11/22 06/18/22 06/17/22 History omeprazole 10 mg capsule,delayed 10 mg PO DAILY PRN gastritis 06/18/22 06/18/22 Unknown History release potassium chloride 20 mEq/15 mL 10 ml PO TID 06/18/22 06/18/22 Unknown History oral liquid topiramate 100 mg tablet 100 mg PO BEDTIME depressive 06/18/22 06/18/22 Unknown History disorder Physical Exam Vital Signs and Narrative: Vital Signs: Last Vital Signs Temp 98.2 F 06/18/22 15:20 Pulse 88 06/18/22 18:07 Resp 18 06/18/22 18:07 BP 107/55 L 06/18/22 18:07 Pulse Ox 99 06/18/22 18:07 O2 Del Method 06/18/22 18:07 BMI result Body Mass Index 19.1 Constitutional - Awake and Alert, No apparent distress Eyes - PERRLA, EOMI Cardiovascular - S1S2, RRR, No edema Respiratory - Normal lung expansion, Normal respiratory effort, No respiratory distress, CTA bilaterally Gastrointestinal - mild RUQ/epigastric tenderness to palpation. ND; +BS; No rebound or guarding - No CVA tenderness Extremities - no calf tenderness bilaterally, no swelling Skin - Warm/Dry Neurological - Alert & oriented x3, CN II-XII in tact, 5/5 strength BUE and BLE Psychological - Appropriate affect Results Labs CBC and Chem 7: 06/18/22 15:17 06/19/22 06:09 Labs: Laboratory Results - last 24 hr 06/18/22 06/18/22 06/18/22 15:17 15:17 15:59 MCV 94.5 MCH 32.1 MCHC 34.0 RDW 13.2 Plt Count 267 MPV 9.3 L Immature Gran % (Auto) 0.3 Neut % (Auto) 61.2 Lymph % (Auto) 26.0 Hall % (Auto) 9.9 Eos % (Auto) 1.9 Baso % (Auto) 0.7 Lymph # (Auto) 1.9 Hall # (Auto) 0.7 Eos # (Auto) 0.1 Baso # (Auto) 0.1 Abs Immat Gran (auto) 0.02 Absolute Neuts (auto) 4.5 Absolute Nucleated RBC 0.000 Nucleated RBC % (auto) 0.0 Anion Gap 10 L Estim Creat Clear Calc 72.5 Estimated GFR > 60 Random Glucose 89 Calcium 8.5 Magnesium 2.1 Total Bilirubin 0.2 Direct Bilirubin < 0.2 AST 129 H ALT 246 H Alkaline Phosphatase 57 Total Creatine Kinase 3431 H Total Protein 5.3 L Albumin 3.4 L Lipase 83 H Urine Color Urine Appearance Urine pH Ur Specific Echo Urine Protein Urine Glucose (UA) Urine Ketones Urine Blood Urine Nitrite Ur Leukocyte Esterase Urine Test NEGATIVE Urine Opiates Screen Urine Fentanyl Screen Acetaminophen < 1 Ur Barbiturates Screen Ur Phencyclidine Scrn Ur Amphetamines Screen U Benzodiazepines Scrn Urine Cocaine Screen U Marijuana (THC) Screen COVID-19 ([facility]ANDA) COVID-19 Clin Com 06/18/22 06/18/22 06/18/22 16:19 16:19 17:12 MCV MCH MCHC RDW Plt Count MPV Immature Gran % (Auto) Neut % (Auto) Lymph % (Auto) Hall % (Auto) Eos % (Auto) Baso % (Auto) Lymph # (Auto) Hall # (Auto) Eos # (Auto) Baso # (Auto) Abs Immat Gran (auto) Absolute Neuts (auto) Absolute Nucleated RBC Nucleated RBC % (auto) Anion Gap Estim Creat Clear Calc Estimated GFR Random Glucose Calcium Magnesium Total Bilirubin Direct Bilirubin AST ALT Alkaline Phosphatase Total Creatine Kinase Total Protein Albumin Lipase Urine Color Yellow Urine Appearance Clear Urine pH 7.5 Ur Specific Echo <= 1.005 Urine Protein Negative Urine Glucose (UA) Negative Urine Ketones Negative Urine Blood Negative Urine Nitrite Negative Ur Leukocyte Esterase Negative Urine Test Urine Opiates Screen Not Detected Urine Fentanyl Screen Not Detected Acetaminophen Ur Barbiturates Screen Not Detected Ur Phencyclidine Scrn Not Detected Ur Amphetamines Screen Not Detected U Benzodiazepines Scrn Not Detected Urine Cocaine Screen Not Detected U Marijuana (THC) Screen Not Detected COVID-19 (WANDA) Negative COVID-19 Clin Com See Note Imaging Radiologist's Impressions: Impressions Abdomen/Pelvis CT 06/18/22 16:51 IMPRESSION: 1. A cause for the patient's elevated liver function tests and elevated liver enzymes has not been found. 2. Incidental note made of a stable 9 mm mass in the right lobe of the liver suggestive of a hemangioma. 3. Other incidental findings as described above. Fleischner guidelines were followed. Assessment and Plan (1) Rhabdomyolysis: Status: Acute (2) Elevated liver enzymes: Status: Acute (3) Hypokalemia: Status: Acute Plan 42-year-old female with history of bipolar disorder, history of intentional ethylene glycol overdose requiring dialysis acutely, gastritis, history po lysubstance abuse, and chronic slow transit constipation to be observed for acute rhabdomyolysis and hypokalemia. # acute rhabdomyolysis- likely secondary to severe hypokalemia -CK >3431 -Aggressive IVF with LR @125mls/hr -Follow CK # Hypokalemia- likely secondary to viral syndrome with acute GI losses and poor PO intake from anorexia -K 1.8 one week ago, improved to 3.5 with KCL PO -IV LR as above -Follow BMP and replete as appropriate #Probable illness- resolving -Pt initially with h/a, ear ache, n/v/d, anorexia -Encourage PO intake -Symptomatic treatment #Acute transaminitis- likely secondary to rhabdo -AST 670, ALT 171 one week ago, improved to AST 129, ALT 246 today -appreciate GI input -follow CMP #Liver hemangioma -CT abd/pelvis with stable hemangioma 9mm, unlikely cause of transaminitis -GI consult pending #Chronic gastritis -continue ppi #bipolar disorder- stable -Continue home meds #chronic constipation -Continue home meds DVT prophylaxis- mechanical Full code Quality Stroke Does the patient have a stroke diagnosis?: No VTE Prior VTE?: No VTE Risk Level:: Medical - moderate - high VTE Device Contraindication: N/A - Device Ordered VTE Drug Contraindication: Treatment Not Indicated
[2022-06-18 19:21] VITALS: BP 110/67; PULSE 82; RESP 17; TEMP 37.3; O2SAT 100
[2022-06-18] MEDS: Lactated Ringers 1,000 ML 125 ML IVCONT ×2 (19:22→23:40)
[2022-06-18 21:16] VITALS: BP 107/56; PULSE 88; RESP 18; TEMP 36.6; O2SAT 100
[2022-06-18] MEDS: traZODone HCL 50 MG TABLET 150 MG PO (21:47)
[2022-06-18] MEDS: Topiramate 100 MG TABLET PO (21:47)
[2022-06-18 23:15] VITALS: BP 93/53; PULSE 85; RESP 18; TEMP 36.6; O2SAT 100
[2022-06-19 04:30] LABS: HBS Num1 6.28 mIU/mL (0-7.99); HBc Num1 0.04 S/CO (0.00-0.79); Hepatitis B Core Antibody Nonreactive (Nonreactive); Hepatitis B Surface Antigen Negative (Negative); ~HepC Num1 0.03 S/CO (0.00-0.79); ~Hepatitis B Surface Antibody NONREACTIVE (Nonreactive); ~Hepatitis C Antibody Nonreactive (Nonreactive)
[2022-06-19 07:32] LABS: Alanine Aminotransferase 207 U/L (0-31); Albumin Level 3.3 g/dL (3.5-5.0); Alkaline Phosphatase 53 U/L (39-117); Anion Gap 12 (12-20); Aspartate Amino Transferase 84 U/L (5-31); Bilirubin Total 0.4 mg/dL (0.0-1.0); Blood Urea Nitrogen 7 mg/dL (9-16); Calcium 8.1 mg/dL (8.4-10.2); Carbon Dioxide 25 mmol/L (22-29); Chloride 111 mmol/L (96-108); Creatinine Clr Calc Pharmacy 80.8; Estimated Glomerular Filt Rate > 60; Glucose Random 80 mg/dL (60-115); Sodium 145 mmol/L (135-145)
[2022-06-19 07:42] VITALS: PULSE 75; RESP 18; TEMP 36.1
[2022-06-19] MEDS: Lactated Ringers 1,000 ML 125 ML IVCONT (07:48)
[2022-06-19] MEDS: 0.9 % Sodium Chloride Flush 3 ML SYRINGE IVFLUSH ×3 (07:49→19:53)
[2022-06-19] MEDS: Topiramate 25 MG TABLET 150 MG PO (07:49)
[2022-06-19 08:00] VITALS: PULSE 65; RESP 18; TEMP 36.6; O2SAT 95
[2022-06-19] MEDS: Potassium Chloride Packet 20 MEQ PACKET 40 MEQ PO (08:02)
[2022-06-19] MEDS: 0.9 % Sodium Chloride 1,000 ML 999 ML IVCONT ×2 (08:08→09:46)
--- NOTE | 2022-06-19 08:58 | MHC.CM.PN ---
PT REPORTS SHE LIVES WITH HER PARENTS AND IS INDEPENDENT WITH CARE PT DENIES USE F DME OR HOME SERVICES PT COMPLETED A HCP TODAY NAMING HER MOTHER AND FATHER HER AGENTS PT IS ANIBAL BARRIOS PCP: ANA Wren OBSERVATION NOTICE DELIVERED PT REPORTS HE GOAL FOR DC IS TO RETURN HOME FAMILY TO TRANSPORT
[2022-06-19 10:39] VITALS: BP 102/50; PULSE 85; TEMP 36.9; O2SAT 100
[2022-06-19] MEDS: ondansetron HCL 4 MG/2 ML VIAL IVPUSH (11:28)
[2022-06-19] MEDS: Potassium Chloride Packet 20 MEQ PACKET PO (11:28)
[2022-06-19] MEDS: clonazePAM 0.5 MG TABLET PO (12:25)
--- NOTE | 2022-06-19 14:23 | HO.PM.IMPN ---
Subjective Subjective Date of Service: 06/19/22 Interval History: rhabdomyolysis,hypokalemia Review of Systems Still has mild muscle cramp otherwise denies any chest pain or shortness of breath has nausea. No fever or chills Physical Exam Vital Signs: Vital Signs: Last Vital Signs Temp 98.5 F 06/19/22 10:39 Pulse 85 06/19/22 10:39 Resp 18 06/19/22 08:00 BP 102/50 L 06/19/22 10:39 Pulse Ox 100 06/19/22 10:39 O2 Del Method 06/19/22 10:39 BMI result Body Mass Index 19.1 Appearance: Alert.? Oriented X3.? not in distress.? cvs: rrr, [id number] , no murmur res: clear to auscultation ,no rhonchii or wheezing abd: no rebound or guarding ,nt, bs present. ext pulses present , no cyanosis . neuro: axo3 , nonfocal. Objective Data Active Medications Amphetamine/Dextroamphetamine (Dextroamphetamine/Amphetamine Xr 5 Mg Cap.Er.24h) 15 mg PO [id number] [facility] Last Admin: 06/19/22 08:03 Dose: Not Given Documented By: JAQUELINE Non-Admin Reason: Patient Refused Clonazepam (Clonazepam 0.5 Mg Tablet) 0.25 - 0.5 mg PO BEDTIME PRN PRN Reason: anxiety Last Admin: 06/19/22 12:25 Dose: 0.5 mg Documented By: JAQUELINE Lactated Ringer's (Lr) 1,000 mls @ 125 mls/hr IVCONT .Q8H [facility] Last Infusion: 06/19/22 10:57 Dose: 125 mls/hr Documented By: JAQUELINE Non-Formulary Medication (Plecanatide [Trulance]) 3 mg PO BEDTIME [facility] Omeprazole (Omeprazole 20 Mg/10 Ml Susp.Recon) 10 mg PO DAILY PRN PRN Reason: gastritis Ondansetron HCl (Ondansetron Hcl 4 Mg/2 Ml Vial) 4 mg IVPUSH Q4H PRN PRN Reason: Nausea and Vomiting Last Admin: 06/19/22 11:28 Dose: 4 mg Documented By: JAQUELINE Pharmacy Consult (Consult Rx Perform Med Rec) 1 each MISCELLANE ONCE PRN PRN Reason: Consult order Sodium Chloride (0.9 % Sodium Chloride Flush 3 Ml Syringe) 3 ml IVFLUSH QSHIFT [facility] Last Admin: 06/19/22 07:49 Dose: 3 ml Documented By: JAQUELINE Topiramate (Topiramate 100 Mg Tablet) 100 mg PO BEDTIME [facility] Last Admin: 06/18/22 21:47 Dose: 100 mg Documented By: MARISA Topiramate (Topiramate 25 Mg Tablet) 150 mg PO DAILY [facility] Last Admin: 06/19/22 07:49 Dose: 150 mg Documented By: JAQUELINE Trazodone HCl (Trazodone Hcl 50 Mg Tablet) 150 mg PO BEDTIME [facility] Last Admin: 06/18/22 21:47 Dose: 150 mg Documented By: MARISA Labs CBC & Chem 7: 06/18/22 15:17 06/19/22 06:09 Labs: Laboratory Results - last 24 hr 06/18/22 06/18/22 06/18/22 15:17 15:17 15:17 MCV 94.5 MCH 32.1 MCHC 34.0 RDW 13.2 Plt Count 267 MPV 9.3 L Immature Gran % (Auto) 0.3 Neut % (Auto) 61.2 Lymph % (Auto) 26.0 Wayne % (Auto) 9.9 Eos % (Auto) 1.9 Baso % (Auto) 0.7 Lymph # (Auto) 1.9 Wayne # (Auto) 0.7 Eos # (Auto) 0.1 Baso # (Auto) 0.1 Abs Immat Gran (auto) 0.02 Absolute Neuts (auto) 4.5 Absolute Nucleated RBC 0.000 Nucleated RBC % (auto) 0.0 Anion Gap 10 L Estim Creat Clear Calc 72.5 Estimated GFR > 60 Random Glucose 89 Calcium 8.5 Magnesium 2.1 Total Bilirubin 0.2 Direct Bilirubin < 0.2 AST 129 H ALT 246 H Alkaline Phosphatase 57 Total Creatine Kinase 3431 H Total Protein 5.3 L Albumin 3.4 L Lipase 83 H Urine Color Urine Appearance Urine pH Ur Specific [place] Urine Protein Urine Glucose (UA) Urine Ketones Urine Blood Urine Nitrite Ur Leukocyte Esterase Urine Test Urine Opiates Screen Urine Fentanyl Screen Acetaminophen < 1 Ur Barbiturates Screen Ur Phencyclidine Scrn Ur Amphetamines Screen U Benzodiazepines Scrn Urine Cocaine Screen U Marijuana (THC) Screen Respiratory Panel [place] Adenovirus (Rapid PCR) B.pert (TEM-PCR) B.parapertussis DNA PCR C. pneumoniae DNA (PCR) Coronavirus OC43 (PCR) Coronavirus HKU1 (PCR) Coronavirus 229E (PCR) COVID-19 (WANDA) COVID-19 Clin Com Coronavirus NL63 (PCR) Hep Bs Antigen Negative Hep Bs Antibody NONREACTIVE Hep B Core Total Ab Nonreactive Hepatitis C Ab (EIA) Nonreactive Human Metapneumovir PCR Influenza A (RT-PCR) Influenza B (RT-PCR) M. pneumoniae (PCR) Parainfluenza 1 (PCR) Parainfluenza 2 (PCR) Parainfluenza 3 (PCR) Parainfluenza 4 (PCR) RSV (PCR) Entero/Rhino (PCR) SARS-CoV-2 RNA (RT-PCR) 06/18/22 06/18/22 06/18/22 15:59 16:19 16:19 MCV MCH MCHC RDW Plt Count MPV Immature Gran % (Auto) Neut % (Auto) Lymph % (Auto) Wayne % (Auto) Eos % (Auto) Baso % (Auto) Lymph # (Auto) Wayne # (Auto) Eos # (Auto) Baso # (Auto) Abs Immat Gran (auto) Absolute Neuts (auto) Absolute Nucleated RBC Nucleated RBC % (auto) Anion Gap Estim Creat Clear Calc Estimated GFR Random Glucose Calcium Magnesium Total Bilirubin Direct Bilirubin AST ALT Alkaline Phosphatase Total Creatine Kinase Total Protein Albumin Lipase Urine Color Yellow Urine Appearance Clear Urine pH 7.5 Ur Specific [place] <= 1.005 Urine Protein Negative Urine Glucose (UA) Negative Urine Ketones Negative Urine Blood Negative Urine Nitrite Negative Ur Leukocyte Esterase Negative Urine Test NEGATIVE Urine Opiates Screen Not Detected Urine Fentanyl Screen Not Detected Acetaminophen Ur Barbiturates Screen Not Detected Ur Phencyclidine Scrn Not Detected Ur Amphetamines Screen Not Detected U Benzodiazepines Scrn Not Detected Urine Cocaine Screen Not Detected U Marijuana (THC) Screen Not Detected Respiratory Panel [place] Adenovirus (Rapid PCR) B.pert (TEM-PCR) B.parapertussis DNA PCR C. pneumoniae DNA (PCR) Coronavirus OC43 (PCR) Coronavirus HKU1 (PCR) Coronavirus 229E (PCR) COVID-19 (WANDA) COVID-19 Clin Com Coronavirus NL63 (PCR) Hep Bs Antigen Hep Bs Antibody Hep B Core Total Ab Hepatitis C Ab (EIA) Human Metapneumovir PCR Influenza A (RT-PCR) Influenza B (RT-PCR) M. pneumoniae (PCR) Parainfluenza 1 (PCR) Parainfluenza 2 (PCR) Parainfluenza 3 (PCR) Parainfluenza 4 (PCR) RSV (PCR) Entero/Rhino (PCR) SARS-CoV-2 RNA (RT-PCR) 06/18/22 06/18/22 06/19/22 17:12 20:45 06:09 MCV MCH MCHC RDW Plt Count MPV Immature Gran % (Auto) Neut % (Auto) Lymph % (Auto) Wayne % (Auto) Eos % (Auto) Baso % (Auto) Lymph # (Auto) Wayne # (Auto) Eos # (Auto) Baso # (Auto) Abs Immat Gran (auto) Absolute Neuts (auto) Absolute Nucleated RBC Nucleated RBC % (auto) Anion Gap 12 Estim Creat Clear Calc 80.8 Estimated GFR > 60 Random Glucose 80 Calcium 8.1 L Magnesium 2.0 Total Bilirubin 0.4 Direct Bilirubin AST 84 H ALT 207 H Alkaline Phosphatase 53 D Total Creatine Kinase 2175 H D Total Protein 5.0 L D Albumin 3.3 L Lipase Urine Color Urine Appearance Urine pH Ur Specific [place] Urine Protein Urine Glucose (UA) Urine Ketones Urine Blood Urine Nitrite Ur Leukocyte Esterase Urine Test Urine Opiates Screen Urine Fentanyl Screen Acetaminophen Ur Barbiturates Screen Ur Phencyclidine Scrn Ur Amphetamines Screen U Benzodiazepines Scrn Urine Cocaine Screen U Marijuana (THC) Screen Respiratory Panel [place] Cancelled Adenovirus (Rapid PCR) Cancelled B.pert (TEM-PCR) Cancelled B.parapertussis DNA PCR Cancelled C. pneumoniae DNA (PCR) Cancelled Coronavirus OC43 (PCR) Cancelled Coronavirus HKU1 (PCR) Cancelled Coronavirus 229E (PCR) Cancelled COVID-19 (WANDA) Negative COVID-19 Clin Com See Note Coronavirus NL63 (PCR) Cancelled Hep Bs Antigen Hep Bs Antibody Hep B Core Total Ab Hepatitis C Ab (EIA) Human Metapneumovir PCR Cancelled Influenza A (RT-PCR) Cancelled Influenza B (RT-PCR) Cancelled M. pneumoniae (PCR) Cancelled Parainfluenza 1 (PCR) Cancelled Parainfluenza 2 (PCR) Cancelled Parainfluenza 3 (PCR) Cancelled Parainfluenza 4 (PCR) Cancelled RSV (PCR) Cancelled Entero/Rhino (PCR) Cancelled SARS-CoV-2 RNA (RT-PCR) Cancelled Assessment and Plan (1) Rhabdomyolysis: Status: Acute (2) Elevated liver enzymes: Status: Acute (3) LFT elevation: Status: Acute (4) Hypokalemia: Status: Acute Plan 42-year-old female with history of bipolar disorder, history of intentional ethylene glycol overdose requiring dialysis acutely, gastritis, history polysubstance abuse, and chronic slow transit constipation to be observed for acute rhabdomyolysis and hypokalemia. # acute rhabdomyolysis- likely secondary to severe hypokalemia -CK >3431 -Aggressive IVF with LR @125mls/hr -Follow CK # Hypokalemia- likely secondary to viral syndrome with acute GI losses and poor PO intake from anorexia -K 1.8 one week ago, improved to 3.5 with KCL PO -IV LR as above -Follow BMP and replete as appropriate #Probable illness- resolving -Pt initially with h/a, ear ache, n/v/d, anorexia -Encourage PO intake -Symptomatic treatment #Acute transaminitis- likely secondary to rhabdo -lft's -appreciate GI input -follow CMP #Liver hemangioma -CT abd/pelvis with stable hemangioma 9mm, unlikely cause of transaminitis -GI consult pending #Chronic gastritis -continue ppi #bipolar disorder- stable -Continue home meds #chronic constipation -Continue home meds DVT prophylaxis- mechanical Full code inpatient need: Acute rhabdomylysis , hypokalemia,elevated lfts's Gi eval pending Quality Stroke Does the patient have a stroke diagnosis?: No VTE Prior VTE?: No VTE Risk Level:: Medical - moderate - high VTE Device Contraindication: N/A - Device Ordered VTE Drug Contraindication: Treatment Not Indicated
[2022-06-19 15:30] VITALS: BP 109/57; PULSE 76; RESP 17; TEMP 37.1; O2SAT 97
--- NOTE | 2022-06-19 15:35 | PC.NURSE ---
Patient began shift with soft BP 76/[address] ordered 2L bolus of NS which were given. patient then began to complain about N/V, cough, and abdominal pressure with the urge to urinate but unable to. Zofran given with good effect. Bladder scanned pt for 101 mL. Pt experiencing increased anxiety, given klonopin with good effect. DC'd LR that was running due to patient complaining of a swelling feeling and tingling in fingers and toes. K+ levels were low this AM, so DR added an extra 20 meq of K+. came down bedside to assess patient. Seen by GI, see report.
[2022-06-19 19:09] VITALS: BP 95/51; PULSE 70; RESP 17; TEMP 37.2; O2SAT 98
[2022-06-19] MEDS: Topiramate 100 MG TABLET PO (19:52)
[2022-06-19] MEDS: traZODone HCL 50 MG TABLET 150 MG PO (19:52)
--- NOTE | 2022-06-20 | ECG_ITS ---
Test Reason : ABN EKG Blood Pressure : / mmHG Vent. Rate : 078 BPM Atrial Rate : 078 BPM P-R Int : 116 ms QRS Dur : 080 ms QT Int : 380 ms P-R-T Axes : 062 072 052 degrees QTc Int : 433 ms Normal sinus rhythm Low voltage QRS RSR' or QR pattern in V1 suggests right ventricular conduction delay Otherwise normal ECG When compared with ECG of 18-JUN-2022 14:47, No significant change was found Referred By: Alivia Tam Electronically Signed By:EMILY MEZA MD
--- NOTE | 2022-06-20 02:42 | CONS_ITS ---
DATE OF SERVICE: 06/19/2022 REFERRING PHYSICIAN: Soha Fraser NP REASON FOR CONSULTATION: Elevated liver function tests. HISTORY OF PRESENT ILLNESS: The patient is a pleasant 42-year-old woman who was admitted to the hospital after presenting to the emergency room yesterday with complaints of abnormal labs. She was previously evaluated and found to have significant hypokalemia at an urgent care center after she developed acute onset of muscle weakness while traveling in [place]. Liver function tests were elevated at that time. She was treated with oral potassium supplementation and had continued symptoms of slurred speech with some chronic vomiting symptoms and presented to the emergency room here. Evaluation there included laboratory studies showing elevation of her CPK consistent with rhabdomyolysis. Transaminases were also elevated with an AST on admission of 129 and ALT of 246. These improved overnight with hydration. Other liver tests were normal or low, and imaging was undertaken including CT scanning of the abdomen showing a probable liver hemangioma, but no other significant findings. She has no history of liver problems. She does not drink alcohol to excess and denies drug usage. She has no risk factors for chronic hepatitis. PAST MEDICAL HISTORY: 1. Bipolar disorder. 2. Gastritis. 3. Irritable bowel syndrome with constipation predominant. 4. Asthma. 5. ASCUS. 6. Substance abuse, currently in remission by her report. CURRENT MEDICATIONS: Her current medication list is reviewed in the chart. ALLERGIES: MULTIPLE MEDICATION ALLERGIES ARE REVIEWED. FAMILY HISTORY: This is reviewed with the patient and is unknown. SOCIAL HISTORY: There is no current tobacco, alcohol, or substance abuse. REVIEW OF SYSTEMS: SKIN: No pruritus. HEENT: Negative. CARDIOPULMONARY: She denies shortness of breath or chest pain. GASTROINTESTINAL: As above. GENITOURINARY: Negative. NEUROPSYCHIATRIC: Negative. PHYSICAL EXAMINATION: GENERAL: Shows a pleasant female, lying comfortably in bed. VITAL SIGNS: Reviewed in the electronic medical record and are stable. SKIN: Anicteric. HEENT: Shows no scleral icterus. NECK: Without lymphadenopathy or thyromegaly. LUNGS: Clear. HEART: Shows a regular rate and rhythm. S1, S2. No murmur. ABDOMEN: Soft without focal masses or tenderness. Bowel sounds are present. No organomegaly is noted. EXTREMITIES: Without edema. IMPRESSION AND PLAN: We discussed the causes of elevated liver function test elevations, elevated liver function tests today. It is possible this may simply be related to her rhabdomyolysis and we discussed this today to have repeat liver function tests and autoimmune markers in the morning. Thanks for asking me to see her. I will follow her in the hospital with you. MD KEE Artis/HÉCTOR / [phone]
[2022-06-20 04:11] VITALS: BP 102/55; PULSE 79; RESP 18; TEMP 36.2; O2SAT 96
[2022-06-20 04:48] LABS: Hepatitis A Antibody IgM 0.12 Index (0-0.79); ~Hepatitis A Antibody IgM Nonreactive (Nonreactive)
[2022-06-20] MEDS: Topiramate 25 MG TABLET 150 MG PO (07:29)
[2022-06-20] MEDS: 0.9 % Sodium Chloride Flush 3 ML SYRINGE IVFLUSH (07:30)
[2022-06-20 08:00] VITALS: BP 100/52; PULSE 77; RESP 18; TEMP 36.4; O2SAT 94
[2022-06-20 08:31] LABS: Gamma Glutamyl Transpeptidase 17 U/L (7-33)
[2022-06-20 08:34] LABS: Alanine Aminotransferase 192 U/L (0-31); Albumin Level 2.9 g/dL (3.5-5.0); Alkaline Phosphatase 54 U/L (39-117); Aspartate Amino Transferase 64 U/L (5-31); Bilirubin Total 0.2 mg/dL (0.0-1.0); Blood Urea Nitrogen 7 mg/dL (9-16); Calcium 7.8 mg/dL (8.4-10.2); Creatinine Clr Calc Pharmacy 78.3; Estimated Glomerular Filt Rate > 60; Glucose Random 89 mg/dL (60-115); Total Protein 4.4 g/dL (6.5-8.0)
[2022-06-20] MEDS: Dextroamphetamine/Amphetamine XR 5 MG CAP.ER.24H 15 MG PO (08:44)
[2022-06-20 08:45] LABS: Anion Gap 10 (12-20); Carbon Dioxide 21 mmol/L (22-29); Chloride 118 mmol/L (96-108); Potassium 3.9 mmol/L (3.3-5.1); Sodium 145 mmol/L (135-145)
--- NOTE | 2022-06-20 10:19 | PM.DS ---
DS: Providers Provider Date of Service: 06/20/22 Date of admission: 06/19/22 13:37 Primary care physician: Shiv Garrison MD Consults: 06/18/22 18:36 Consult to Gastroenterology Routine Consulting Provider: Dwayne Garzon Reason for consultation: elevated LFTs Has provider been notified: No DS: Diagnosis Discharge Diagnosis (1) Rhabdomyolysis: Status: Acute (2) Elevated liver enzymes: Status: Acute (3) LFT elevation: Status: Acute (4) Hypokalemia: Status: Acute DS: Summary Hospital Course Hospital Course: 42-year-old female with history of bipolar disorder, history of intentional ethylene glycol overdose requiring dialysis acutely, gastritis, history polysubstance abuse, and chronic slow transit constipation presented to the ED this morning for evaluation of muscle aches and fatigue.? She was seen at a local urgent care 1 week ago after developing diffuse myalgias and general malaise.? Found to have severe hypokalemia 1.8 with elevated liver enzymes with AST 670, ALT 171.? She was advised by her PCP to present to the ED but she was unable to do so according to the patient.? She was instead given 30 mEq oral KCl to take daily for potassium repletion.? She had been feeling slightly better but than 4 days ago again felt very fatigued and developed slurred speech with facial swelling, myalgias, and tension in her jaw.? She does tell me she has a long history of intermittent vomiting and follows with Gastroenterology was told this was related to gastritis.? She has also had intermittent episodes of diarrhea over the last week with RUAQ/epigastric discomfort/bloating and has developed very dark colored urine.? Of note, she was traveling prior to onset of symptoms in [place] visiting her boyfriend who does not have similar symptoms.? She has also developed headache and earache.? She does state that she has had anorexia since onset of symptoms with poor oral intake but denies any intentional restriction.? She denies any injury. On arrival VSS. No leukocytosis, no anemia.? Creatinine 0.68, BUN 11.? Sodium 140, potassium 3.5, chloride 110, CO2 24.? AST 129, ALT 246 today, alk-phos 57, CK 3431, protein 5.3, albumin 3.4, lipase 83. UA unremarkable, UTox screen negative. Hepatitis panel pending.? CT of the abdomen/pelvis with a stable 9 mm mass in the right lobe of the liver suggestive of hemangioma. hopsital course: Rhabdomyolysis per possibly related to hypokalemia severe as well as possible viral syndrome. seems to improved: going home- encouraged were aggressive p.o. hydration, p.o. intake. Hypokalemia seems to be resolved with repletion. Monitor CBC, CMP out patiently. CT abdomen is suspicious for hemangioma and elevated LFT possibly secondary to rhabdomyolysis ,also follow-up autoimmune markers with PCP out patiently. follow-up with PCP and GI out patiently. ekg - seems similar to previous EKGs in 2007 and , no new cardiac symptoms further workup outpatient as needed. above management discussed with the patient and her mother in detail length they both understand and in agreement with the above plan, time spent 50 minute. Time Spent with Patient Time attestation: Total time spent providing and/or coordinating discharge services: Discharge coordination time: Greater than 30 minutes Quality: Safe Use of Opioids Does Pt have an Active Cancer Diagnosis on the Problem List?: No Quality: Stroke Does the patient have a stroke diagnosis?: No Physical Exam Vital Signs: Vital Signs: Last Vital Signs Temp 97.5 F 06/20/22 08:00 Pulse 77 06/20/22 08:00 Resp 18 06/20/22 08:00 BP 100/52 L 06/20/22 08:00 Pulse Ox 94 06/20/22 08:00 O2 Del Method 06/20/22 08:00 BMI result Body Mass Index 19.1 ?? Appearance: Alert.? Oriented X3.? not in distress.? cvs: rrr, [id number] , no murmur res: clear to auscultation ,no rhonchii or wheezing abd: no rebound or guarding ,nt, bs present. ext pulses present , no cyanosis . neuro: axo3 , nonfocal. DS: Data Data Completed and Pending Labs on day of discharge: Laboratory Results - last 24 hr 06/18/22 06/20/22 06/20/22 15:17 07:29 07:29 Sodium 145 Potassium 3.9 D Chloride 118 H Carbon Dioxide 21 L Anion Gap 10 L BUN 7 L Creatinine 0.63 Estim Creat Clear Calc 78.3 Estimated GFR > 60 Random Glucose 89 Calcium 7.8 L Total Bilirubin 0.2 GGT 17 AST 64 H ALT 192 H Alkaline Phosphatase 54 Total Creatine Kinase 1008 H Total Protein 4.4 L Albumin 2.9 L Hepatitis A IgM Ab Nonreactive 06/20/22 07:29 Sodium Potassium Chloride Carbon Dioxide Anion Gap BUN Creatinine Estim Creat Clear Calc Estimated GFR Random Glucose Calcium Total Bilirubin GGT AST ALT Alkaline Phosphatase Total Creatine Kinase 1014 H Total Protein Albumin Hepatitis A IgM Ab Discharge Plan Discharge Anticipated Discharge Date/Time: 06/20/22 10:14 Patient Disposition: Home, Self-Care Discharge Diagnosis: Rhabdomyolysis, elevated LFT, hemangioma. Referrals: Po,Shiv Quiroz MD [Primary Care Provider] - 1 Week Dwayne Garzon [Physician] - 1 Week (follow up outpatient) Discharge Medications: Continued topiramate 100 mg tablet 100 mg PO BEDTIME potassium chloride 20 mEq/15 mL liquid 10 ml PO TID Rx Instructions: pt splits to three times a day omeprazole 10 mg Capsule,Delayed Release(Dr/Ec) 10 mg PO DAILY PRN (Reason: gastritis) clonazepam 0.5 mg tablet 0.25 - 0.5 mg PO BEDTIME PRN (Reason: anxiety) trazodone 150 mg tablet 150 mg PO BEDTIME topiramate 100 mg tablet 150 mg PO DAILY dextroamphetamine-amphetamine 15 mg capsule,extended release 24hr 1 cap PO [id number] Trulance 3 mg tablet 3 mg PO BEDTIME Discharge Orders: Discharge Order (Routine); Ordered 06/20/22 Ordered By: Alivia Tam Diet: Advance to usual diet Activity on Discharge: As tolerated Stand Alone Forms: Patient Portal Discharge page Care Plan Goals: Rhabdomyolysis per possibly related to hypokalemia severe as well as possible viral syndrome. seems to improved: going home- encouraged were aggressive p.o. hydration, p.o. intake. Hypokalemia seems to be resolved with repletion. Monitor CBC, CMP out patiently. CT abdomen is suspicious for hemangioma and elevated LFT possibly secondary to rhabdomyolysis ,also follow-up autoimmune markers with PCP out patiently. follow-up with PCP and GI out patiently. Health Concerns: As above. Plan of Treatment: As above. Assessment: As above. As above.
--- NOTE | 2022-06-20 10:22 | MHC.CM.PN ---
HOME - SELF CARE RN AWARE OF PLAN
[2022-06-20] MEDS: ondansetron HCL 4 MG/2 ML VIAL IVPUSH (12:26)
[2022-06-25 12:46] LABS: Anti Nuclear Antibody Screen NEGATIVE (NEGATIVE)
[2022-06-26 13:42] LABS: Smooth Muscle Antibody <20 U (<20)
[2022-06-26 15:37] LABS: Mitochondrial Antibodies NEGATIVE (NEGATIVE)
== END 2022-06-20 13:01 | disposition home or self-care (01) | DRG 351 ==
LOC: HO.ED 18:02 → HO.EDOVER 18:54 → HO.S3 19:06
PROVIDERS: Internal Medicine Gastroenterology; Nurse Practitioner Family; Admitting Provider Physician Assistant; Emergency Provider Student in an Organized Health Care Education/Training Program; PCP Internal Medicine; Visit Provider Internal Medicine
DX: M62.82 Rhabdomyolysis (principal); D18.03 Hemangioma of intra-abdominal structures; E87.6 Hypokalemia; F31.9 Bipolar disorder, unspecified; J45.909 Unspecified asthma, uncomplicated; K58.1 Irritable bowel syndrome with constipation; Z20.822 Contact with and (suspected) exposure to COVID-19; Z87.891 Personal history of nicotine dependence; Z88.0 Allergy status to penicillin; Z88.1 Allergy status to other antibiotic agents; Z79.899 Other long term (current) drug therapy
CPT/HCPCS: 36415; 74177; 80048; 80053; 80076; 80143; 80307; 81003; 81025; 82550; 82977; 83690; 83735; 85025; 86015; 86038; 86039; 86255; 86256; 86704; 86706; 86709; 86803; 87340; 87633; 87635; 93005; 99218; 99285; J2405; Q9967

== ENCOUNTER 2022-06-25 13:42 | Outpatient (REF) | payer BC, SELFPAY ==
[2022-06-25 16:19] LABS: MANUAL DIFF FLAG NO
[2022-06-25 16:21] LABS: Basophils Absolute Auto 0.1 X10*3/uL (0.0-0.2); Basophils Percent Auto 0.7 % (0-2); Eosinophils Absolute Auto 0.2 X10*3/uL (0.0-0.4); Eosinophils Percent Auto 2.2 % (0-4); Hematocrit 38.9 % (37.0-47.0); Hemoglobin 12.5 g/dl (12.0-16.0); Imm Gran Abs Auto 0.02 X10*3/uL (0.00-0.03); Imm Gran Pct Auto 0.3 % (0.0-0.4); Lymphocytes Absolute Auto 1.5 X10*3/uL (1.2-4.9); Lymphocytes Percent Auto 20.9 % (20-40); Mean Corpuscular HGB Conc 32.1 g/dl (31.0-35.0); Mean Corpuscular Hemoglobin 31.7 pg (27.0-33.0); Mean Corpuscular Volume 98.7 fL (80.0-98.0); Monocytes Absolute Auto 0.5 X10*3/uL (0.1-1.2); Monocytes Percent Auto 7.1 % (2-11); Neutrophils Absolute Auto 4.9 x10*3/uL (2.0-8.3); Neutrophils Percent Auto 68.8 % (45-73); Platelet Count 309 X10*3/uL (160-400); Red Blood Count 3.94 X10*6/uL (4.20-5.50); Red Cell Distribution Width 13.2 % (11.0-16.0); White Blood Count 7.2 X10*3/uL (4.8-10.8)
[2022-06-25 16:37] LABS: Alanine Aminotransferase 78 U/L (0-31); Albumin Level 3.9 g/dL (3.5-5.0); Alkaline Phosphatase 79 U/L (39-117); Anion Gap 13 (12-20); Aspartate Amino Transferase 22 U/L (5-31); Bilirubin Total < 0.2 mg/dL (0.0-1.0); Blood Urea Nitrogen 8 mg/dL (9-16); Calcium 9.1 mg/dL (8.4-10.2); Carbon Dioxide 24 mmol/L (22-29); Chloride 111 mmol/L (96-108); Estimated Glomerular Filt Rate > 60; Glucose Random 72 mg/dL (60-115); Potassium 4.1 mmol/L (3.3-5.1); Sodium 144 mmol/L (135-145)
[2022-06-25 16:57] LABS: Thyroid Stimulating Hormone 1.91 uIU/mL (0.32-4.0)
[2022-06-26 08:15] LABS: HBS Num1 7.73 mIU/mL (0-7.99); HBc Num1 0.03 S/CO (0.00-0.79); HBsAGNum1 0.34 S/CO (0.00-0.99); Hepatitis B Core Antibody Nonreactive (Nonreactive); Hepatitis B Surface Antigen Negative (Negative); ~HepC Num1 0.04 S/CO (0.00-0.79); ~Hepatitis B Surface Antibody NONREACTIVE (Nonreactive); ~Hepatitis C Antibody Nonreactive (Nonreactive)
== END 2022-06-25 13:43 | disposition home or self-care (01) ==
LOC: HO.HMGCLDS 13:42
PROVIDERS: PCP Internal Medicine; Visit Provider Internal Medicine
DX: E87.6 Hypokalemia (principal); R79.89 Other specified abnormal findings of blood chemistry
CPT/HCPCS: 36415; 80053; 84443; 85025; 86704; 86706; 86803; 87340

== ENCOUNTER 2022-07-27 08:04 | Outpatient (REF) | payer BC, SELFPAY ==
[2022-07-27 11:15] LABS: MANUAL DIFF FLAG NO
[2022-07-27 11:21] LABS: Basophils Percent Auto 0.4 % (0-2); Eosinophils Absolute Auto 0.1 X10*3/uL (0.0-0.4); Eosinophils Percent Auto 1.4 % (0-4); Hematocrit 44.5 % (37.0-47.0); Hemoglobin 14.7 g/dl (12.0-16.0); Imm Gran Abs Auto 0.01 X10*3/uL (0.00-0.03); Imm Gran Pct Auto 0.2 % (0.0-0.4); Lymphocytes Absolute Auto 1.7 X10*3/uL (1.2-4.9); Lymphocytes Percent Auto 32.4 % (20-40); Mean Corpuscular Hemoglobin 31.5 pg (27.0-33.0); Mean Corpuscular Volume 95.3 fL (80.0-98.0); Mean Platelet Volume 10.7 fL (9.4-12.3); Monocytes Absolute Auto 0.5 X10*3/uL (0.1-1.2); Monocytes Percent Auto 10.2 % (2-11); Neutrophils Absolute Auto 2.8 x10*3/uL (2.0-8.3); Neutrophils Percent Auto 55.4 % (45-73); Platelet Count 257 X10*3/uL (160-400); Red Blood Count 4.67 X10*6/uL (4.20-5.50); Red Cell Distribution Width 12.8 % (11.0-16.0); White Blood Count 5.1 X10*3/uL (4.8-10.8)
[2022-07-27 11:53] LABS: Alanine Aminotransferase 15 U/L (0-31); Albumin Level 4.3 g/dL (3.5-5.0); Alkaline Phosphatase 67 U/L (39-117); Anion Gap 11 (12-20); Aspartate Amino Transferase 13 U/L (5-31); Bilirubin Total 0.4 mg/dL (0.0-1.0); Blood Urea Nitrogen 13 mg/dL (9-16); Calcium 9.1 mg/dL (8.4-10.2); Carbon Dioxide 25 mmol/L (22-29); Chloride 107 mmol/L (96-108); Estimated Glomerular Filt Rate > 60; Glucose Random 85 mg/dL (60-115); Potassium 3.7 mmol/L (3.3-5.1); Sodium 139 mmol/L (135-145); Total Protein 6.7 g/dL (6.5-8.0)
[2022-07-27 14:40] LABS: Folate 4.6 ng/mL (> or = 4.0); Vitamin B12 468 pg/mL (200-900)
[2022-07-27 15:03] LABS: Thyroid Stimulating Hormone 1.57 uIU/mL (0.32-4.0); Vitamin D 25-OH Total 13.7 ng/mL (>30)
== END 2022-07-27 08:05 | disposition home or self-care (01) ==
LOC: HO.HMGCLDS 08:04
PROVIDERS: PCP Internal Medicine; Visit Provider Internal Medicine
DX: M62.82 Rhabdomyolysis (principal)
CPT/HCPCS: 36415; 80053; 82306; 82550; 82607; 82746; 84443; 85025

== ENCOUNTER → 2022-11-05 12:34 | Outpatient (BNVA) | payer BC, SELFPAY | PROVIDERS: PCP Internal Medicine; Visit Provider Internal Medicine | DX: Z13.89 Encounter for screening for other disorder (principal) ==

== ENCOUNTER 2023-06-14 12:25 | Outpatient (AMB) | payer BC, SELFPAY ==
[2023-06-14 12:25] VITALS: BP 98/70; PULSE 90; O2SAT 99; BMI 18.6
--- NOTE | 2023-06-14 12:25 | A.OFFPC_ITS ---
Vital Signs 06/14/23 12:25 Height 4 ft 11 in Weight 92 lb BMI 18.6 BP 98/70 Blood Pressure Location Lt brachial Position Sitting Pulse 90 Pulse Source Pulse Oximeter Pulse Oximetry (%) 99 Oxygen Delivery Method Room Air Intake Visit Reasons: PE Elevator Troubleshooter Required: No Accompanied by: Self / Same As Patient Allergies amoxicillin Allergy (Unknown, Verified 06/14/23 12:34) rash, flushing, hives clavulanic acid [Augmentin] Allergy (Unknown, Verified 06/14/23 12:34) rash lamotrigine Allergy (Unknown, Verified 06/14/23 12:34) malgorzata gaston ranitidine Adverse Reaction (Unknown, Verified 06/14/23 12:34) stomach upset, breast s swell Medication List - Last Reconciled 06/14/23 by Shiv Garrison MD clindamycin phosphate 1% topical QAM clonazepam 0.25 - 0.5 mg PO BEDTIME PRN dapsone 7.5% topical QAM lisdexamfetamine (Vyvanse) 30 mg PO DAILY omeprazole 10 mg PO DAILY PRN plecanatide (Trulance) 3 mg PO BEDTIME tazarotene 0.1% appl topical BEDTIME topiramate 200 mg in am and 100 mg in pm topiramate 200 mg PO DAILY trazodone 150 mg PO BEDTIME Tobacco use date assessed: 08/21/22 Dental Screening Dental Screen Date: 06/14/23 Did you have a dental visit in the last 12 months?: Yes Did you have a dental problem in the last 6 months where you did not have access to dental care?: No Was dental information given to patient?: Patient has dentist HPI PE HPI Details 43-year-old underweight female with a hi story of bipolar disorder GERD constipation last seen in August 2022 patient is here for physical exam. Patient follows up with Gastroenterology history of prolapsed rectum presently on Trulance adding Mag and MiraLax previous meds of Amitiza, Zelnorm and Motegrity(but never took it) previous colonoscopy 2014 history of polyps diagnosis of chronic idiopathic constipation advised to add fiber increase oral fluids MiraLax true Tawana advised to do colonoscopy. Patient has seen dermatology for acne placed on Aczone, clindamycin and Tazorac [facility] Medical History (Updated 06/14/23 @ 12:57 by Sihv Garrison MD) Constipation Elevated liver enzymes Rhabdomyolysis Hypokalemia Febrile illness LFT elevation Dialysis patient Optic neuritis Bipolar disorder Asthma Irritable bowel syndrome Polysubstance abuse ASCUS (atypical squamous cells of undetermined significance) on gynecologic Papanicolaou smear complicating , antepartum Surgical History Hx of colonoscopy History of esophagogastroduodenoscopy (EGD) History of sinus surgery Family History Family/Other No problems noted. Other Family history not known due to adoption Social History (Updated 06/14/23 @ 12:49 by Shiv Garrison MD) Household Members: Other Household Members Other:: mother and father Housing: House Do you presently have visiting nurse or other home services: No Alcohol intake: current Patient Tobacco Use Status: Former Tobacco user Years Smoked: 2014 quit e-Cigarette/Vaping Use: Never Used service: No Current occupational status: employed Cognitive needs: No Hearing needs: No Vision needs: No Questionnaire Thrive Questionnaire Date Thrive assessed: 08/21/22 DAYANA-7 AMB Questionnaire DAYANA-7 Date DAYANA - 7 assessed: 08/21/22 Source: Developed by Drs. Dwayne Dowd, Machelle Toledo, Jason Quijano and colleagues, with an educational regino from [employer]. Review of Systems Const Denies poor appetite and Denies weakness Eyes Denies no additional complaints ENT Reports Normal hearing present, Denies dizziness, Denies nasal congestion, Denies tinnitus and Denies sore throat Card Denies chest pain, Denies syncope, Denies rapid heart rate and Denies dyspnea Resp Denies cough and Denies dyspnea GI Denies change in stool character, Reports constipation, Denies diarrhea, Denies nausea and Denies vomiting Denies urinary frequency, Denies difficulty voiding and Denies dysuria Neuro Reports Normal hearing present, Denies confusion, Denies dizziness, Denies syncope and Denies weakness Psych Denies confusion Physical exam (Primary Care) Vital Signs: Last Vital Signs BP 98/70 06/14/23 12:25 Oxygen Delivery Method Room Air 06/14/23 12:25 BMI result Body Mass Index 18.6 Tobacco/Smoking Status: Tobacco use Status Tobacco use date assessed 08/21/22 06/14/23 12:28 Patient Tobacco Use Status Former Tobacco user 06/14/23 12:28 e-Cigarette/Vaping Use Never Used 06/14/23 12:28 Thrive Assessment: Date of Thrive Assessment Date Thrive assessed 08/21/22 06/14/23 12:28 Const General: No confusion Orientation/consciousness: No confusion HENMT Head: Yes normocephalic Ears: external ears normal and TM's normal bilaterally Face and sinus: Yes normal facial exam Mouth: moist mucous membranes Throat: Yes tonsils normal Eyes Conjunctivae: conjunctivae normal Pupils: Equal, round and reactive pupils present and Pupil accommodation reflex normal Direct Ophthalmoscopy: normal light reflex Neck Neck: No lymphadenopathy Thyroid: Thyroid normal Chest Chest palpation & inspection: normal inspection of the chest Resp Effort & Inspection: normal respiratory effort and no audible wheezes Auscultation: clear to auscultation bilaterally, no crackles, no wheezes and lung sounds not diminished Cardio Rate: regular rate Rhythm: regular rhythm Peripheral pulses: radial pulses present and dorsalis pedis present GI Palpation (GI): no masses Auscultation: normal bowel sounds and normoactive bowel sounds Rectal Exam - Female: deferred Skin General skin exam: no rashes or lesions noted Rashes: no rashes Neuro General: No confusion Cranial nerves: Yes Equal, round and reactive pupils present and Yes Normal hearing present Cognition (Neuro): normal cognition Gait exam (Neuro): Normal gait present Motor exam (neuro): 5/5 motor strength present throughout Deep tendon reflexes (DTR's): Right brachioradialis reflex intensity grade: 2+, Left brachioradialis reflex intensity grade: 2+, Right patellar reflex intensity grade: 2+ and Left patellar reflex intensity grade: 2+ Extrem General: No edema Assessment and Plan Assessment & Plan (1) Annual physical exam: Code(s): Z00.00 - Encounter for general adult medical examination without abnormal findings (2) Chronic idiopathic constipation: Code(s): K59.04 - Chronic idiopathic constipation Plan: Patient has met with Gastroenterology placed on Trulance, MiraLax (3) Bipolar disorder: Comment: 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 Mayra Finn Code(s): F31.9 - Bipolar disorder, unspecified Plan: Continue to follow-up with counseling and therapy (4) GERD (gastroesophageal reflux disease): Code(s): K21.9 - Gastro-esophageal reflux disease without esophagitis Plan: Avoid the foods that causes that usually spicy foods, tomato products, juices, coffee, soda and foods that your sensitive to. After eating do not lie down, allow 3-4 hours before in lie down. And keep the head of bed above 30 degrees to avoid the acid from going up. (5) Personal history of colonic polyps: Code(s): Z86.010 - Personal history of colonic polyps Plan: Patient has met with gastroenterology and planned colonoscopy (6) Cervical cancer screening: Code(s): Z12.4 - Encounter for screening for malignant neoplasm of cervix (7) Breast cancer screening by mammogram: Code(s): Z12.31 - Encounter for screening mammogram for malignant neoplasm of breast Orders: Orders Complete Blood Count Auto Diff Today K59.04 - Chronic idiopathic constipation Comprehensive Met. Panel Today K59.04 - Chronic idiopathic constipation Free T4 (Free Thyroxine) Today K59.04 - Chronic idiopathic constipation Vitamin B12 and Folate Today K59.04 - Chronic idiopathic constipation Erythrocyte Sedimentation Rate Today K59.04 - Chronic idiopathic constipation C Reactive Protein Today K59.04 - Chronic idiopathic constipation MM tomosynthesis screening BI Today Z12.31 - Encounter for screening mammogram for malignant neoplasm of breast Thyroid Stimulating Hormone Today K59.04 - Chronic idiopathic constipation Vitamin D 25-OH Total Today K59.04 - Chronic idiopathic constipation Lipid Panel Today E78.00 - Pure hypercholesterolemia, unspecified, K59.04 - Chronic idiopathic constipation Magnesium Today K59.04 - Chronic idiopathic constipation Referrals DIPLOMA MAKER Referral Z12.4 - Encounter for screening for malignant neoplasm of cervix Coding Level of Care Code Est Pt Prev Care 40-64y(46056) Diagnoses Annual physical exam Z00.00 Chronic idiopathic constipation K59.04 Bipolar disorder F31.9 GERD (gastroesophageal reflux disease) K21.9 Personal history of colonic polyps Z86.010 Cervical cancer screening Z12.4 Breast cancer screening by mammogram Z12.31
== END 2023-06-14 13:29 | disposition home or self-care (01) ==
PROVIDERS: PCP Internal Medicine; Visit Provider Internal Medicine
DX: Z00.00 Encounter for general adult medical examination without abnormal findings (principal); K59.04 Chronic idiopathic constipation; F31.9 Bipolar disorder, unspecified; K21.9 Gastro-esophageal reflux disease without esophagitis; Z86.010 Personal history of colon polyps; Z12.4 Encounter for screening for malignant neoplasm of cervix; Z12.31 Encounter for screening mammogram for malignant neoplasm of breast
CPT/HCPCS: 99396

== ENCOUNTER 2023-08-09 12:22 | Outpatient (REF) | payer BC, SELFPAY ==
--- NOTE | ~2023-08-09 | MM_ITS ---
EXAMINATION: MM SCREENING DIGITAL BREAST TOMOSYNTHESIS, BILATERAL CLINICAL INFORMATION: Screening. Asymptomatic. COMPARISON: Mammography: This is a baseline mammogram. TECHNIQUE: Digital breast tomosynthesis is performed in both the craniocaudal and mediolateral oblique views along with computer-aided detection (CAD). Synthesized 2D images are generated from the tomosynthesis. FINDINGS: The breasts are heterogeneously dense, which may obscure small masses (ACR BI-RADS breast composition Category c). There are no significant masses, abnormal calcifications, or other abnormalities. MM/MM tomosynthesis screening BI IMPRESSION: No mammographic evidence of malignancy. ASSESSMENT: BI-RADS BI-RADS 1 - Negative RECOMMENDATION: Routine annual mammography screening. 1 year F/U This examination should not preclude the clinical evaluation of a suspicious palpable abnormality. This patient's information was entered into a reminder system with a target due date for their next mammogram.
== END 2023-08-09 12:23 | disposition home or self-care (01) ==
LOC: HO.MAMMO 12:22
PROVIDERS: PCP Internal Medicine; Visit Provider Internal Medicine
DX: Z12.31 Encounter for screening mammogram for malignant neoplasm of breast (principal)
CPT/HCPCS: 77063; 77067

== ENCOUNTER → 2023-08-09 12:30 | Outpatient (BNV) | payer BC, SELFPAY | PROVIDERS: PCP Internal Medicine; Visit Provider Radiology Diagnostic Radiology | DX: Z12.31 Encounter for screening mammogram for malignant neoplasm of breast (principal) | CPT/HCPCS: 77063; 77067 ==

== ENCOUNTER 2023-08-28 08:16 | Outpatient (REF) | payer BC, SELFPAY ==
[2023-08-28 11:52] LABS: Basophils Percent Auto 0.6 % (0-2); Eosinophils Percent Auto 0.7 % (0-4); Hematocrit 47.4 % (37.0-47.0); Hemoglobin 16.7 g/dl (12.0-16.0); Imm Gran Abs Auto 0.01 X10*3/uL (0.00-0.03); Imm Gran Pct Auto 0.2 % (0.0-0.4); Lymphocytes Absolute Auto 1.8 X10*3/uL (1.2-4.9); Lymphocytes Percent Auto 33.3 % (20-40); MANUAL DIFF FLAG NO; Mean Corpuscular HGB Conc 35.2 g/dl (31.0-35.0); Mean Corpuscular Hemoglobin 31.9 pg (27.0-33.0); Mean Corpuscular Volume 90.6 fL (80.0-98.0); Mean Platelet Volume 11.3 fL (9.4-12.3); Monocytes Absolute Auto 0.8 X10*3/uL (0.1-1.2); Monocytes Percent Auto 14.2 % (2-11); Neutrophils Absolute Auto 2.7 x10*3/uL (2.0-8.3); Platelet Count 262 X10*3/uL (160-400); Red Blood Count 5.23 X10*6/uL (4.20-5.50); Red Cell Distribution Width 12.9 % (11.0-16.0); White Blood Count 5.4 X10*3/uL (4.8-10.8)
[2023-08-28 12:20] LABS: Alanine Aminotransferase 21 U/L (0-31); Albumin Level 4.5 g/dL (3.5-5.0); Alkaline Phosphatase 64 U/L (39-117); Aspartate Amino Transferase 21 U/L (5-31); Bilirubin Total 0.4 mg/dL (0.0-1.0); Blood Urea Nitrogen 9 mg/dL (9-16); C Reactive Protein < 0.10 mg/dL (< or = 0.50); Calcium 8.7 mg/dL (8.4-10.2); Cholesterol 269 mg/dL (<200); Estimated Glomerular Filt Rate > 60; Glucose Random 74 mg/dL (60-115); HDL Cholesterol 102 mg/dL (>40); LDL Cholesterol Calculated 158 mg/dL (<100); Total Protein 7.1 g/dL (6.5-8.0); Triglycerides 45 mg/dL (<150)
[2023-08-28 12:24] LABS: Free T4 (Free Thyroxine) 1.03 ng/dL (0.71-1.85); Vitamin D 25-OH Total 29.6 ng/mL (>30)
[2023-08-28 12:26] LABS: Folate 6.1 ng/mL (> or = 4.0); Vitamin B12 932 pg/mL (200-900)
[2023-08-28 12:45] LABS: Erythrocyte Sedimentation Rate 2 MM/HR (0-20)
[2023-08-28 13:15] LABS: Anion Gap 15 (12-20); Carbon Dioxide 26 mmol/L (22-29); Chloride 99 mmol/L (96-108); Potassium 2.1 mmol/L (3.3-5.1); Sodium 138 mmol/L (135-145)
== END 2023-08-28 08:17 | disposition home or self-care (01) ==
LOC: HO.HMGCLDS 08:16
PROVIDERS: PCP Internal Medicine; Visit Provider Internal Medicine
DX: K59.04 Chronic idiopathic constipation (principal); E78.00 Pure hypercholesterolemia, unspecified
CPT/HCPCS: 36415; 80053; 80061; 82306; 82607; 82746; 83735; 84439; 84443; 85025; 85652; 86140

== ENCOUNTER 2023-11-01 13:02 | Outpatient (REF) | payer BC, SELFPAY ==
[2023-11-01 18:11] LABS: CT PCR NOT DETECTED (Not Detect.); NG PCR NOT DETECTED (Not Detect.)
[2023-11-02 14:50] LABS: BV Int Neg Control Negative (Negative); BV Int Pos Control Positive (Positive)
[2023-11-07 04:34] LABS: HPV mRNA E6/E7 rflx Not Detected (Not Detected)
== END 2023-11-01 13:03 | disposition home or self-care (01) ==
LOC: HO.LNP 13:02
PROVIDERS: PCP Internal Medicine; Visit Provider Advanced Practice Midwife
DX: Z12.4 Encounter for screening for malignant neoplasm of cervix (principal); Z11.51 Encounter for screening for human papillomavirus (HPV); Z20.2 Contact with and (suspected) exposure to infections with a predominantly sexual mode of transmission; F31.9 Bipolar disorder, unspecified
CPT/HCPCS: 0353U; 87480; 87510; 87624; 87660; 88142

== ENCOUNTER 2023-11-01 13:02 | Outpatient (AMB) | payer BC, SELFPAY ==
--- NOTE | 2023-11-01 13:11 | MHC.OFFVIS ---
Intake Vital Signs 11/01/23 13:12 Height 4 ft 11 in Weight 94 lb BMI 19.0 BP 100/72 Intake Visit Reasons: New patient Annual Intake Note: Needs Paragard exchange, having stronger mood swings when PMS, vaginal dryness Slat Basket Top Maker Required: No Information Interpreted: non-clinical & clinical Treasury Specialist: Treasury Specialist Present (Aidyn) Allergies cephalexin Allergy (Intermediate, Verified 11/01/23 13:18) Rash amoxicillin Allergy (Unknown, Verified 11/01/23 13:18) rash, flushing, hives clavulanic acid [Augmentin] Allergy (Unknown, Verified 11/01/23 13:18) rash lamotrigine Allergy (Unknown, Verified 11/01/23 13:18) malgorzata gaston ranitidine Adverse Reaction (Unknown, Verified 11/01/23 13:18) stomach upset, breast s swell Medication List - Last Reconciled 11/01/23 by Jenny Low, CNTamiko clindamycin phosphate 1% topical QAM clonazepam 0.25 - 0.5 mg PO BEDTIME PRN dapsone 7.5% topical QAM lisdexamfetamine (Vyvanse) 30 mg PO DAILY omeprazole 10 mg PO DAILY PRN plecanatide (Trulance) 3 mg PO BEDTIME potassium chloride ER (Klor-Con M) 20 mEq PO DAILY 5 days tazarotene 0.1% appl topical BEDTIME topiramate 200 mg in am and 100 mg in pm topiramate 200 mg PO DAILY trazodone 150 mg PO BEDTIME Is last menstrual period known: Yes Last menstrual period: 10/07/23 Post menopausal: No HPI New patient Annual HPI Details 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 It has been a few years since she has had a Pap smear she had a history of abnormal in the past she has a ParaGard IUD that was inserted she thinks 10 years ago. 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 She has a history of bipolar which she is working at every day to be on top of what her signs and symptoms are and she is managing as well as is possible she does yoga for self-care things have been stressful lately as her mother was in the hospital in [facility] and it took a long time to convert her to a normal rhythm and her mom has a procedure coming up in November for ablation so the patient herself is had put off her planned wedding. She is much more aware of premenstrual symptoms but after some discussion it has not enough to consider changing to a hormone based method of control she would like to replace the ParaGard IUD. Discussed that it will be best to replace it during her menstrual cycle and in fact in the heaviest days of it and the rationale for that. She is on top of all of the other issues in her healthcare. She does not get it much calcium in her diet could she is does not drink milk and can not tolerate yogurt and does have dietary challenges so I do recommend her adding calcium to her diet she does yoga for exercise. She is sexually active and has no concerns there she is becoming more aware of increased dryness. She is going to sign for a ParaGard replacement today and she will call at the start of her. In aim to schedule replacement on 1 of the heaviest days of her menses. She is going to call her primary and see if there is anything else that should be checked in her blood work as regards calcium she gets regular blood test to check her potassium because of a previous kidney injury. [facility] Medical History Hypokalemia Constipation Elevated liver enzymes Rhabdomyolysis Febrile illness LFT elevation Dialysis patient Optic neuritis Bipolar disorder Asthma Irritable bowel syndrome Polysubstance abuse ASCUS (atypical squamous cells of undetermined significance) on gynecologic Papanicolaou smear complicating , antepartum Surgical History Hx of colonoscopy History of esophagogastroduodenoscopy (EGD) History of sinus surgery Family History Family/Other No problems noted. Other Family history not known due to adoption Social History Household Members: Other Household Members Other:: mother and father Housing: House Do you presently have visiting nurse or other home services: No Alcohol intake: current Patient Tobacco Use Status: Former Tobacco user Years Smoked: 2014 quit e-Cigarette/Vaping Use: Never Used service: No Current occupational status: employed Cognitive needs: No Hearing needs: No Vision needs: No Female Reproductive History Menstrual Age of Menarche: 11 Duration of menses: 3-5 days Date of last menstrual period: 10/07/23 control method: copper IUCD Total pregnancies: 2 Ab induced: 2 Date of last pap smear: 08/18/15 (negative) History of abnormal pap smear: Yes (2010 2007 ASCUS) Date of Mammogram: 08/09/23 Physical Exam Vital Signs: Last Vital Signs BP 100/72 11/01/23 13:12 BMI result Body Mass Index 19.0 Const General: healthy appearing, comfortable, no acute distress, well developed and alert Nutritional Appearance: average body habitus Orientation/consciousness: patient oriented x3 Limitations: no limitations HEENT Head: Yes normocephalic Neck Neck: Yes normal visual inspection Chest Chest palpation & inspection: normal inspection of the chest Breast/axilla inspection: normal inspection of the breasts and normal inspection of the axillae Breast/axilla palpation: normal palpation of the breasts and normal palpation of the axillae Resp Effort & Inspection: normal respiratory effort GI Inspection: Yes normal to inspection, No Abdominal wall edema and No distended Palpation (GI): Soft to palpation and nontender Other: Vagina slightly atrophic with thin mucosa cervix nulliparous pink smooth moist with ParaGard strings visible uterus small anteverted mobile nontender adnexa nontender good tone with Kegel. General: Yes bladder normal to palpation External Female Exam: normal external appearance and normal appearance of the urethra Speculum Exam - Vagina: normal appearance of the vagina, normal palpation and normal vaginal discharge Speculum Exam - Cervix: normal appearance of the cervix, normal palpation and nontender Bimanual exam- vagina & uterus: normal bimanual exam, normal palpation, uterine size normal, bladder normal to palpation, consistency normal, normal palpation, uterine mobility normal, uterine shape normal, No Cervical tenderness present, non-tender and no cervical motion tenderness Bimanual Exam- Adnexa, other: normal adnexae, no masses, normal and No adnexal tenderness Neuro General: patient oriented x3 Assessment & Plan Assessment & Plan (1) Cervical cancer screening: Code(s): Z12.4 - Encounter for screening for malignant neoplasm of cervix (2) Breast cancer screening by mammogram: Code(s): Z12.31 - Encounter for screening mammogram for malignant neoplasm of breast (3) Bipolar disorder: Comment: 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 Mayra Finn Code(s): F31.9 - Bipolar disorder, unspecified (4) Encounter for routine checking of intrauterine contraceptive device (IUD): Comment: Lengthy discussion of ParaGard IUD versus Mirena IUD. She is signing paperwork for ParaGard IUD , will call with menses for replacement of ParaGard IUD on heaviest day. 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 It has been a few years since she has had a Pap smear she had a history of abnormal in the past she has a ParaGard IUD that was inserted she thinks 10 years ago. 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 She has a history of bipolar which she is working at every day to be on top of what her signs and symptoms are and she is managing as well as is possible she does yoga for self-care things have been stressful lately as her mother was in the hospital in [facility] and it took a long time to convert her to a normal rhythm and her mom has a procedure coming up in November for ablation so the patient herself is had put off her planned wedding. She is much more aware of premenstrual symptoms but after some discussion it has not enough to consider changing to a hormone based method of control she would like to replace the ParaGard IUD. Discussed that it will be best to replace it during her menstrual cycle and in fact in the heaviest days of it and the rationale for that. She is on top of all of the other issues in her healthcare. She does not get it much calcium in her diet could she is does not drink milk and can not tolerate yogurt and does have dietary challenges so I do recommend her adding calcium to her diet she does yoga for exercise. She is sexually active and has no concerns there she is becoming more aware of increased dryness. She is going to sign for a ParaGard replacement today and she will call at the start of her. In aim to schedule replacement on 1 of the heaviest days of her menses. She is going to call her primary and see if there is anything else that should be checked in her blood work as regards calcium she gets regular blood test to check her potassium because of a previous kidney injury. She also just recently had her mammogram done.- Full discussion about menstrual cycles and also daren menopausal symptoms also took place.-----Discussed in this visit the following: healthy balanced diet, regular and consistent exercise, getting recommended health screens, doing the best she can for her particular health concerns, kegel exercises, pap smear screening and followup recommendations, mammography screening and SBE, normal changes in cycles in her life stage--- . ---Discussed normal changes that happen premenapausally, perimenapausally, and postmenopausally, and ways to handle them. Discussed the normal variation, and the range of experiences that women experience. Discussed nutrition, health, need for exercise, both weight-bearing and aerobic. Also discussed the normal changes that happen with vaginal mucosal thinning and sensitivity, and simple more natural ways of handling these challenges. Coding Level of Care Code New Pt Prev Care 40-64y(45592) Diagnoses Cervical cancer screening Z12.4 Breast cancer screening by mammogram Z12.31 Bipolar disorder F31.9 Encounter for routine checking of intrauterine contraceptive device (IUD) Z30.431
[2023-11-01 13:12] VITALS: BP 100/72; BMI 19.0
== END 2023-11-01 14:32 | disposition home or self-care (01) ==
LOC: HO.HWSM 13:02
PROVIDERS: PCP Internal Medicine; Visit Provider Advanced Practice Midwife
DX: Z01.419 Encounter for gynecological examination (general) (routine) without abnormal findings (principal); F31.9 Bipolar disorder, unspecified; Z30.431 Encounter for routine checking of intrauterine contraceptive device
CPT/HCPCS: 99386

== ENCOUNTER 2023-12-04 08:17 | Outpatient (AMB) | payer BC, SELFPAY ==
[2023-12-04 08:29] VITALS: BP 98/70; PULSE 78; TEMP 36.6; O2SAT 98; BMI 19.0
--- NOTE | 2023-12-04 08:29 | AM.OFFWIN_ITS ---
Intake Vital Signs 12/04/23 08:29 Height 4 ft 11 in Weight 94 lb BMI 19.0 BP 98/70 Blood Pressure Location Rt brachial Position Sitting Pulse 78 Pulse Source Pulse Oximeter Temp 97.8 F Temp Source Temporal Artery Scan Pulse Oximetry (%) 98 Intake Visit Reasons: EP ears blocked Intake Note: pt s here for ear pain and feels like its an ear infection Patient Tobacco Use Status: Former Tobacco user Allergies cephalexin Allergy (Intermediate, Verified 12/04/23 08:30) Rash amoxicillin Allergy (Unknown, Verified 12/04/23 08:30) rash, flushing, hives clavulanic acid [Augmentin] Allergy (Unknown, Verified 12/04/23 08:30) rash lamotrigine Allergy (Unknown, Verified 12/04/23 08:30) malgorzata gaston ranitidine Adverse Reaction (Unknown, Verified 12/04/23 08:30) stomach upset, breast s swell Do you need a note to return to daycare/school/sports/work: No HPI HPI Comments History of Present Illness Details 43-year-old female presents today compla ining of bilateral ear pain for the last 4 days. She went to another urgent care who said she had a mild ear infection 4 days ago but the complaint has continued. She did have some cephalexin at home that she took and stated she has had improvement. Denies fever chills sweats congestion cough or chest pain. [facility] Medical History Hypokalemia Constipation Elevated liver enzymes Rhabdomyolysis Febrile illness LFT elevation Dialysis patient Optic neuritis Bipolar disorder Asthma Irritable bowel syndrome Polysubstance abuse ASCUS (atypical squamous cells of undetermined significance) on gynecologic Papanicolaou smear complicating , antepartum Surgical History Hx of colonoscopy History of esophagogastroduodenoscopy (EGD) History of sinus surgery Family History Family/Other No problems noted. Other Family history not known due to adoption Social History Household Members: Other Household Members Other:: mother and father Housing: House Do you presently have visiting nurse or other home services: No Alcohol intake: current Patient Tobacco Use Status: Former Tobacco user Years Smoked: 2013 quit e-Cigarette/Vaping Use: Never Used service: No Current occupational status: employed Cognitive needs: No Hearing needs: No Vision needs: No Female Reproductive History Menstrual Age of Menarche: 11 Review of Systems Const All systems reviewed & are unremarkable except as noted in HPI and below Physical Exam Vital Signs: Last Vital Signs Temp 97.8 F 12/04/23 08:29 Pulse 78 12/04/23 08:29 BP 98/70 12/04/23 08:29 Pulse Ox 98 12/04/23 08:29 BMI result Body Mass Index 19.0 Const General: healthy appearing and no acute distress HEENT Head: Yes normal to inspection, Yes normocephalic and Yes atraumatic Ears: hearing grossly normal bilaterally, external ears normal and TM abnormal bulging and erythematous General nose exam: Normal external nose present Face and sinus: Yes normal facial exam Throat: Yes posterior oropharynx normal Resp Effort & Inspection: normal respiratory effort Auscultation: clear to auscultation bilaterally Cardio Rate: regular rate Rhythm: regular rhythm Assessment & Plan Assessment & Plan (1) Otitis media: Code(s): H66.90 - Otitis media, unspecified, unspecified ear Plan: Antibiotics were ordered and the patient will follow up with her PCP Plan See plan Medications: New doxycycline hyclate 100 mg PO BID 7 days 14 caps 0RF Coding Level of Care Code Est Pt Level 3 (64966) Diagnoses Otitis media H66.90
== END 2023-12-04 08:44 | disposition home or self-care (01) ==
PROVIDERS: PCP Internal Medicine; Visit Provider Physician Assistant Medical
DX: H66.90 Otitis media, unspecified, unspecified ear (principal)
CPT/HCPCS: 99213

== ENCOUNTER 2023-12-17 13:31 | Outpatient (AMB) | payer BC, SELFPAY ==
[2023-12-17 13:32] VITALS: BP 118/62; PULSE 108; O2SAT 98; BMI 18.4
--- NOTE | 2023-12-17 13:32 | A.OFFPC_ITS ---
Vital Signs 12/17/23 13:32 Height 4 ft 11 in Weight 91 lb BMI 18.4 BP 118/62 Blood Pressure Location Lt brachial Position Sitting Pulse 108 H Pulse Source Pulse Oximeter Pulse Oximetry (%) 98 Oxygen Delivery Method Room Air Intake Visit Reasons: 6 month f/u, bilateral ear infection Allergies cephalexin Allergy (Intermediate, Verified 12/04/23 08:30) Rash amoxicillin Allergy (Unknown, Verified 12/04/23 08:30) rash, flushing, hives clavulanic acid [Augmentin] Allergy (Unknown, Verified 12/04/23 08:30) rash lamotrigine Allergy (Unknown, Verified 12/04/23 08:30) malgorzata gaston ranitidine Adverse Reaction (Unknown, Verified 12/04/23 08:30) stomach upset, breast s swell Medication List - Last Reconciled 12/17/23 by Shiv Garrison MD azelastine (Astepro Allergy) 2 sprays intranasal BID clindamycin phosphate 1% topical QAM clonazepam 0.25 - 0.5 mg PO BEDTIME PRN dapsone 7.5% topical QAM doxycycline hyclate 100 mg PO BID 7 days lisdexamfetamine (Vyvanse) 30 mg PO DAILY omeprazole 10 mg PO DAILY PRN plecanatide (Trulance) 3 mg PO BEDTIME potassium chloride ER (Klor-Con M) 20 mEq PO DAILY 5 days tazarotene 0.1% appl topical BEDTIME topiramate 200 mg in am and 100 mg in pm topiramate 200 mg PO DAILY trazodone 150 mg PO BEDTIME Tobacco use date assessed: 12/17/23 Dental Screening Dental Screen Date: 12/17/23 Did you have a dental visit in the last 12 months?: Yes Did you have a dental problem in the last 6 months where you did not have access to dental care?: No Was dental information given to patient?: Patient has dentist HPI 6 month f/u HPI Details 43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 Last seen in May 2023 mammogram is up-to-date July 2023 there was a planned colonoscopy recent ER visit November 2023 ears blocked treated for otitis media with doxycycline. Patient also follows up with Gynecology. Noted colonoscopy done 08/14/2023 had a polyp [facility] Medical History (Updated 12/17/23 @ 13:55 by Shiv Garrison MD) Otitis media Hypokalemia Constipation Elevated liver enzymes Rhabdomyolysis Febrile illness LFT elevation Dialysis patient Optic neuritis Bipolar disorder Asthma Irritable bowel syndrome Polysubstance abuse ASCUS (atypical squamous cells of undetermined significance) on gynecologic Papanicolaou smear complicating , antepartum Surgical History Hx of colonoscopy History of esophagogastroduodenoscopy (EGD) History of sinus surgery Family History (Updated 12/17/23 @ 13:33 by Ana Quiñones CMA) Family/Other No problems noted. Other Family history not known due to adoption Social History Household Members: Other Household Members Other:: mother and father Housing: House Do you presently have visiting nurse or other home services: No Alcohol intake: current Patient Tobacco Use Status: Former Tobacco user Years Smoked: 2014 quit e-Cigarette/Vaping Use: Never Used service: No Current occupational status: employed Cognitive needs: No Hearing needs: No Vision needs: No Female Reproductive History Menstrual Age of Menarche: 11 Questionnaire PHQ-9 Over the last 2 weeks, how often have you been bothered by any of the following problems? 1. Little interest or pleasure in doing things: not at all 2. Feeling down, depressed, or hopeless: not at all 3. Trouble falling or staying asleep, or sleeping too much: not at all 4. Feeling tired or having little energy: not at all 5. Poor appetite or overeating: not at all 6. Feeling bad about yourself - or that you are a failure or have let yourself or your family down: not at all 7. Trouble concentrating on things, such as reading the newspaper or watching television: not at all 8. Moving or speaking so slowly that other people could have noticed. Or the opposite - being so fidgety or restless that you have been moving around a lot more than usual: not at all 9. Thoughts that you would be better off or of hurting yourself in some way: not at all Total score: 0 Depression Screening Interpretation: Negative Depression Screening Done: Yes 59535 - PHQ-9 Billing: Yes Source: Developed by Drs. Dwayne Dowd, Machelle Toledo, Jason Quijano and colleagues, with an educational regino from [employer]. Thrive Questionnaire Date Thrive assessed: 12/17/23 I am a: Patient What is your living situation today?: I have a steady place to live Within the past 12 months, did the food you bought not last and you didn't have the money to get more?: Never true Within the past 12 months, did you worry whether your food would run out before you got money to buy more?: Never true Do you have trouble paying for medicines?: No Do you have trouble getting transportation to medical appointments?: No Do you have trouble paying your heating and electricity bill?: No Do you have trouble taking care of your child, family member or friend?: No Do you have trouble with day-to-day activities such as bathing, preparing meals, shopping, managing finances, etc.?: No Are you currently unemployed and looking for a job?: No Are you interested in more education?: No Currently or been in a relationship where the following occur: no concerns reported THRIVE Score: 0 AUDIT C Alcohol Use Questionnaire (AUDIT-C) 1. How often do you have a drink containing alcohol?: Monthly or less 2. How many drinks containing alcohol do you have on a typical day when you are drinking?: 1 or 2 3. How often do you have six or more drinks on one occasion?: Never Total Score: 1 Score Reviewed/Action Taken: No DAYANA-7 AMB Questionnaire DAYANA-7 Date DAYANA - 7 assessed: 12/17/23 Feeling nervous, anxious, or on edge: 0 = Not at all Not being able to stop or control worryin = Not at all Worrying too much about different things: 0 = Not at all Trouble relaxin = Not at all Being so restless that it is hard to sit still: 0 = Not at all Becoming easily annoyed or irritable: 0 = Not at all Feeling afraid as if something awful might happen: 0 = Not at all Total DAYANA-7 score (0-4 normal; 5-9 mild; 10-14 moderate; 15-21 severe): 0 Source: Developed by Machelle Young.W. Tre, Jason Quijano and colleagues, with an educational regino from [employer]. Physical exam (Primary Care) Vital Signs: Last Vital Signs Pulse 108 H 12/17/23 13:32 BP 118/62 12/17/23 13:32 Pulse Ox 98 12/17/23 13:32 Oxygen Delivery Method Room Air 12/17/23 13:32 BMI result Body Mass Index 18.4 Tobacco/Smoking Status: Tobacco use Status Tobacco use date assessed 12/17/23 12/17/23 13:44 Patient Tobacco Use Status Former Tobacco user 12/17/23 13:44 e-Cigarette/Vaping Use Never Used 12/17/23 13:44 PHQ-9: PHQ-9 Score PHQ-9: Total score 0 12/17/23 13:44 Depression Screening Interpretation: Negative Thrive Assessment: Date of Thrive Assessment Date Thrive assessed 12/17/23 12/17/23 13:44 Currently or been in a relationship where the following occur: no concerns reported Const General: alert; No acute distress Eyes Conjunctivae: conjunctivae normal Resp Auscultation: clear to auscultation bilaterally Cardio Rate: regular rate Rhythm: regular rhythm GI Inspection: Yes normal to inspection Extrem General: Yes normal to inspection and No edema Assessment and Plan Assessment & Plan (1) Otitis media: Comment: both ears Code(s): H66.90 - Otitis media, unspecified, unspecified ear Qualifiers: Otitis media type: unspecified Laterality: bilateral Qualified Code(s): H66.93 - Otitis media, unspecified, bilateral Plan: both ear (2) Colon polyp: Comment: July [address]23 Dr. Araya Code(s): K63.5 - Polyp of colon Qualifiers: Colon polyp type: unspecified Colon location: unspecified part of colon Qualified Code(s): K63.5 - Polyp of colon Plan: Awaiting results of the colon polyp, advised 5 years repeat (3) Hypokalemia: Code(s): E87.6 - Hypokalemia Plan: Advised retesting (4) Bipolar disorder: Comment: 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 Mayra Finn Code(s): F31.9 - Bipolar disorder, unspecified Plan: Continue to follow-up with psychiatry and counseling Orders: Orders Complete Blood Count Auto Diff Today K21.9 - Gastro-esophageal reflux disease without esophagitis Comprehensive Met. Panel Today K21.9 - Gastro-esophageal reflux disease without esophagitis Free T4 (Free Thyroxine) Today K21.9 - Gastro-esophageal reflux disease without esophagitis Thyroid Stimulating Hormone Today K21.9 - Gastro-esophageal reflux disease without esophagitis Lipid Panel Today E78.00 - Pure hypercholesterolemia, unspecified, K21.9 - Gastro-esophageal reflux disease without esophagitis Vitamin B12 and Folate Today K21.9 - Gastro-esophageal reflux disease without esophagitis Vitamin D 25-OH Total Today K21.9 - Gastro-esophageal reflux disease without esophagitis Medications: New azelastine (Astepro Allergy) administer into each nostril 2 sprays intranasal BID 30 mL 2RF K21.9 - Gastro-esophageal reflux disease without esophagitis Coding Level of Care Code Est Pt Level 4 (02766) Diagnoses Bilateral otitis media, unspecified otitis media type H66.93 Otitis media type: unspecified Laterality: bilateral Polyp of colon, unspecified part of colon, unspecified type K63.5 Colon polyp type: unspecified Colon location: unspecified part of colon Hypokalemia E87.6 Bipolar disorder F31.9
== END 2023-12-17 14:07 | disposition home or self-care (01) ==
PROVIDERS: PCP Internal Medicine; Visit Provider Internal Medicine
DX: H66.93 Otitis media, unspecified, bilateral (principal); K63.5 Polyp of colon; E87.6 Hypokalemia; F31.9 Bipolar disorder, unspecified
CPT/HCPCS: 99214

== ENCOUNTER 2024-01-08 06:42 | Outpatient (REF) | payer BC, SELFPAY ==
[2024-01-08 10:24] LABS: MANUAL DIFF FLAG NO
[2024-01-08 10:40] LABS: Basophils Absolute Auto 0.1 X10*3/uL (0.0-0.2); Eosinophils Absolute Auto 0.1 X10*3/uL (0.0-0.4); Eosinophils Percent Auto 1.5 % (0-4); Imm Gran Abs Auto 0.02 X10*3/uL (0.00-0.03); Imm Gran Pct Auto 0.3 % (0.0-0.4); Lymphocytes Absolute Auto 2.3 X10*3/uL (1.2-4.9); Lymphocytes Percent Auto 36.5 % (20-40); Mean Corpuscular HGB Conc 34.1 g/dl (31.0-35.0); Mean Corpuscular Hemoglobin 31.8 pg (27.0-33.0); Mean Corpuscular Volume 93.2 fL (80.0-98.0); Mean Platelet Volume 10.7 fL (9.4-12.3); Monocytes Absolute Auto 0.7 X10*3/uL (0.1-1.2); Monocytes Percent Auto 10.6 % (2-11); Neutrophils Absolute Auto 3.1 x10*3/uL (2.0-8.3); Neutrophils Percent Auto 50.1 % (45-73); Platelet Count 246 X10*3/uL (160-400); Red Blood Count 4.72 X10*6/uL (4.20-5.50); Red Cell Distribution Width 13.6 % (11.0-16.0); White Blood Count 6.2 X10*3/uL (4.8-10.8)
[2024-01-08 11:09] LABS: Alanine Aminotransferase 26 U/L (0-31); Albumin Level 4.1 g/dL (3.5-5.0); Alkaline Phosphatase 72 U/L (39-117); Anion Gap 10 (12-20); Aspartate Amino Transferase 21 U/L (5-31); Bilirubin Total 0.2 mg/dL (0.0-1.0); Blood Urea Nitrogen 11 mg/dL (9-16); Calcium 8.8 mg/dL (8.4-10.2); Carbon Dioxide 31 mmol/L (22-29); Chloride 103 mmol/L (96-108); Cholesterol 240 mg/dL (<200); Estimated Glomerular Filt Rate > 60; Glucose Random 92 mg/dL (60-115); HDL Cholesterol 106 mg/dL (>40); LDL Cholesterol Calculated 125 mg/dL (<100); Sodium 141 mmol/L (135-145); Total Protein 6.6 g/dL (6.5-8.0); Triglycerides 46 mg/dL (<150)
[2024-01-08 11:11] LABS: Potassium 2.5 mmol/L (3.3-5.1)
[2024-01-08 11:27] LABS: Folate 4.9 ng/mL (> or = 4.0); Vitamin B12 823 pg/mL (200-900)
[2024-01-08 11:31] LABS: Free T4 (Free Thyroxine) 0.85 ng/dL (0.71-1.85); Thyroid Stimulating Hormone 2.34 uIU/mL (0.32-4.0)
== END 2024-01-08 06:43 | disposition home or self-care (01) ==
LOC: HO.HMGCLNP 06:42
PROVIDERS: PCP Internal Medicine; Visit Provider Internal Medicine
DX: K21.9 Gastro-esophageal reflux disease without esophagitis (principal); E78.00 Pure hypercholesterolemia, unspecified
CPT/HCPCS: 80053; 80061; 82306; 82607; 82746; 84439; 84443; 85025

== ENCOUNTER 2024-01-15 06:33 | Outpatient (REF) | payer BC, SELFPAY ==
[2024-01-15 11:48] LABS: Anion Gap 12 (12-20); Blood Urea Nitrogen 10 mg/dL (9-16); Calcium 8.2 mg/dL (8.4-10.2); Carbon Dioxide 24 mmol/L (22-29); Chloride 110 mmol/L (96-108); Estimated Glomerular Filt Rate > 60; Glucose Random 107 mg/dL (60-115); Potassium 3.5 mmol/L (3.3-5.1); Sodium 142 mmol/L (135-145)
== END 2024-01-15 06:34 | disposition home or self-care (01) ==
LOC: HO.HMGCLDS 06:33
PROVIDERS: PCP Internal Medicine; Visit Provider Internal Medicine
DX: E87.6 Hypokalemia (principal)
CPT/HCPCS: 36415; 80048

== ENCOUNTER 2024-06-23 16:04 | Outpatient (AMB) | payer BC, SELFPAY ==
[2024-06-23 16:06] VITALS: BP 116/70; PULSE 95; O2SAT 99; BMI 19.0
--- NOTE | 2024-06-23 16:06 | A.OFFPC_ITS ---
Vital Signs 06/23/24 16:06 Height 4 ft 11 in Weight 94 lb 0.8 oz BMI 19.0 BP 116/70 Blood Pressure Location Lt brachial Position Sitting Pulse 95 Pulse Source Pulse Oximeter Pulse Oximetry (%) 99 Oxygen Delivery Method Room Air Intake Visit Reasons: Physical Allergies cephalexin Allergy (Intermediate, Verified 06/23/24 16:22) Rash amoxicillin Allergy (Unknown, Verified 06/23/24 16:22) rash, flushing, hives clavulanic acid [Augmentin] Allergy (Unknown, Verified 06/23/24 16:22) rash lamotrigine Allergy (Unknown, Verified 06/23/24 16:22) malgorzata gaston ranitidine Adverse Reaction (Unknown, Verified 06/23/24 16:22) stomach upset, breast s swell Medication List - Last Reconciled 06/23/24 by Stephany Vazquez PA-C azelastine (Astepro Allergy) 2 sprays intranasal BID clindamycin phosphate 1% topical QAM clonazepam 0.25 - 0.5 mg PO BEDTIME PRN dapsone 7.5% topical QAM lisdexamfetamine (Vyvanse) 40 mg PO QAM plecanatide (Trulance) 3 mg PO BEDTIME potassium chloride ER (Klor-Con M) 20 mEq PO DAILY 30 days tazarotene 0.1% appl topical BEDTIME topiramate 200 mg in am and 100 mg in pm topiramate 200 mg PO DAILY trazodone 150 mg PO BEDTIME Tobacco use date assessed: 06/23/24 Dental Screening Dental Screen Date: 06/23/24 Did you have a dental visit in the last 12 months?: Yes Did you have a dental problem in the last 6 months where you did not have access to dental care?: No Was dental information given to patient?: Patient has dentist HPI Physical HPI Details 44-year-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 Garrison november 2023 coming in for annual exam. Patient states she has a normal psychiatric provider who had a lapse in her license due to a clerical error. She is looking for refills on her topiramate and trazodone until her provider can get this sorted out. She stated most likely by the end of June. She has no other concerns today. [facility] Medical History Otitis media Hypokalemia Constipation Elevated liver enzymes Rhabdomyolysis Febrile illness LFT elevation Dialysis patient Optic neuritis Bipolar disorder Asthma Irritable bowel syndrome Polysubstance abuse ASCUS (atypical squamous cells of undetermined significance) on gynecologic Papanicolaou smear complicating , antepartum Surgical History Hx of colonoscopy History of esophagogastroduodenoscopy (EGD) History of sinus surgery Family History Family/Other No problems noted. Other Family history not known due to adoption Social History Household Members: Other Household Members Other:: mother and father Housing: House Do you presently have visiting nurse or other home services: No Alcohol intake: current Patient Tobacco Use Status: Former Tobacco user Years Smoked: 2014 quit e-Cigarette/Vaping Use: Never Used service: No Current occupational status: employed Cognitive needs: No Hearing needs: No Vision needs: No Female Reproductive History Menstrual Age of Menarche: 11 Questionnaire PHQ-9 Over the last 2 weeks, how often have you been bothered by any of the following problems? 1. Little interest or pleasure in doing things: not at all 2. Feeling down, depressed, or hopeless: not at all 3. Trouble falling or staying asleep, or sleeping too much: several days 4. Feeling tired or having little energy: several days 5. Poor appetite or overeating: several days 6. Feeling bad about yourself - or that you are a failure or have let yourself or your family down: not at all 7. Trouble concentrating on things, such as reading the newspaper or watching television: several days 8. Moving or speaking so slowly that other people could have noticed. Or the opposite - being so fidgety or restless that you have been moving around a lot more than usual: not at all 9. Thoughts that you would be better off or of hurting yourself in some way: not at all Total score: 4 Depression Screening Interpretation: Negative Depression Screening Done: Yes 28903 - PHQ-9 Billing: Yes Source: Developed by Drs. Dwayne Dowd, Machelle Toledo, Jsaon Quijano and colleagues, with an educational regino from [employer]. Thrive Questionnaire Date Thrive assessed: 06/23/24 I am a: Patient What is your living situation today?: I have a steady place to live Within the past 12 months, did the food you bought not last and you didn't have the money to get more?: Never true Within the past 12 months, did you worry whether your food would run out before you got money to buy more?: Never true Do you have trouble paying for medicines?: No Do you have trouble getting transportation to medical appointments?: No Do you have trouble paying your heating and electricity bill?: No Do you have trouble taking care of your child, family member or friend?: No Do you have trouble with day-to-day activities such as bathing, preparing meals, shopping, managing finances, etc.?: No Are you currently unemployed and looking for a job?: No Are you interested in more education?: No Please select the resources that you would like help with: None Currently or been in a relationship where the following occur: No concerns reported THRIVE Score: 0 AUDIT C Alcohol Use Questionnaire (AUDIT-C) 1. How often do you have a drink containing alcohol?: Never 3. How often do you have six or more drinks on one occasion?: Never Total Score: 0 DAYANA-7 AMB Questionnaire DAYANA-7 Date DAYANA - 7 assessed: 06/23/24 Feeling nervous, anxious, or on edge: 1 = Several days Not being able to stop or control worryin = Several days Worrying too much about different things: 1 = Several days Trouble relaxin = Several days Being so restless that it is hard to sit still: 2 = More than half the days Becoming easily annoyed or irritable: 1 = Several days Feeling afraid as if something awful might happen: 0 = Not at all Total DAYANA-7 score (0-4 normal; 5-9 mild; 10-14 moderate; 15-21 severe): 7 Source: Developed by Machelle Young Kurt Kroenke and colleagues, with an educational regino from [employer]. Review of Systems Const Denies body aches, Denies fatigue, Denies fever(s), Denies frequent falls, Denies headache(s) and Denies weakness Eyes Details: does not have eye doctor Reports no additional complaints and Denies change in vision ENT Denies dysphagia, Denies dizziness, Denies facial pain, Denies headache(s), Denies nasal congestion and Denies odynophagia Card Denies chest pain, Denies syncope, Denies irregular heart rhythm, Denies leg edema, Denies lightheadedness and Denies dyspnea Resp Denies cough and Denies dyspnea GI Denies abdominal pain, Reports constipation (intermittent), Denies dysphagia, Denies dyspepsia, Reports diarrhea (intermittent), Denies nausea, Denies odynophagia and Denies vomiting Denies urinary frequency, Denies dysuria, Denies urinary hesitancy and Denies urinary urgency Musc Denies back pain and Denies myalgias Skin/Breast Reports system reviewed and no additional complaints, except as documented Neuro Denies dizziness, Denies syncope, Denies frequent falls, Denies headache(s) and Denies weakness Psych Reports no additional complaints Endo Denies fatigue Physical exam (Primary Care) Vital Signs: Last Vital Signs Pulse 95 06/23/24 16:06 BP 116/70 06/23/24 16:06 Pulse Ox 99 06/23/24 16:06 Oxygen Delivery Method Room Air 06/23/24 16:06 BMI result Body Mass Index 19.0 Tobacco/Smoking Status: Tobacco use Status Tobacco use date assessed 06/23/24 06/23/24 16:17 Patient Tobacco Use Status Former Tobacco user 06/23/24 16:07 e-Cigarette/Vaping Use Never Used 06/23/24 16:07 PHQ-9: PHQ-9 Score PHQ-9: Total score 4 06/23/24 16:50 Depression Screening Interpretation: Negative Thrive Assessment: Date of Thrive Assessment Date Thrive assessed 06/23/24 06/23/24 16:07 Currently or been in a relationship where the following occur: No concerns reported Const General: cooperative, healthy appearing, comfortable and no acute distress Orientation/consciousness: patient oriented x3 HENMT Head: Yes normocephalic Ears: hearing grossly normal bilaterally, external ears normal, TM's normal bilaterally and EAC's normal General nose exam: Normal external nose present Face and sinus: Yes normal facial exam and Yes sinuses nontender Mouth: Normal oral and palatal mucosa present and tongue normal Throat: Yes posterior oropharynx normal Eyes General: appearance normal, both eyes and all related structures Conjunctivae: conjunctivae normal Pupils: Equal, round and reactive pupils present EOM: EOMs intact bilaterally and No Nystagmus present Neck Neck: Yes normal visual inspection, Yes full ROM and Yes no lymphadenopathy Chest Chest palpation & inspection: normal inspection of the chest Resp Effort & Inspection: normal respiratory effort Auscultation: clear to auscultation bilaterally, no crackles, no rales, no rhonchi, no wheezes and breath sounds present Cardio Rate: regular rate Rhythm: regular rhythm Peripheral pulses: radial pulses present and dorsalis pedis present GI Inspection: Yes normal to inspection and No Abdominal wall edema Palpation (GI): Soft to palpation, not firm and nontender Auscultation: normal bowel sounds Rectal Exam - Female: deferred General: Yes no CVA tenderness Back/Spine/Pelvis Back: no CVA tenderness Skin General skin exam: no rashes or lesions noted Neuro General: patient oriented x3 Cranial nerves: Yes Equal, round and reactive pupils present, Yes Midline tongue present, Yes Ability to bilaterally elevate shoulders present and No Nystagmus present Gait exam (Neuro): Normal gait present Extrem General: Yes normal to inspection, Yes full ROM, No no pedal edema and No edema Psych Speech and movement: Normal speech and movement present Affect: normal affect Insight: Good insight present (Psych) Judgement: Good judgement present (Psych) Immunizations tetanus-diphtheria toxoids-Td 2 Lf unit-2 Lf unit/0.5 mL IM suspension Performing Provider: Stephany Vazquez PA-C [facility] Administered by: LILIANA Szymanski on 06/23/24 16:53 Dose Route Admin Location Dispensed Lot Number Expiration Date [facility] [employer] K[employer] 0.5 mL IM Left Deltoid 0.5 mL [id number] 09/07/24 [address]-1 [employer] VIS Given Date VIS Provided VIS Publication Date 06/23/24 Single Vaccine 21 Eligibility Eligibility Date Funding Source [facility] Eligible-Medicaid 06/23/24 [facility] funds Coding Level of Care Code Est Pt Prev Care 40-64y(83550) Diagnoses Polyp of colon, unspecified part of colon, unspecified type K63.5 Colon location: unspecified part of colon Colon polyp type: unspecified Cervical cancer screening Z12.4 Breast cancer screening by mammogram Z12.31 Annual physical exam Z00.00 GERD (gastroesophageal reflux disease) K21.9 Bipolar disorder F31.9 Low vitamin D level R79.89 Additional Codes PHQ-9 - 77970 - PHQ-9 Billing: Yes ([id number]) Assessment & Plan Assessment & Plan (1) Colon polyp: Comment: July [address]23 Dr. Araya Code(s): K63.5 - Polyp of colon Category: Medical Qualifiers: Colon location: unspecified part of colon Colon polyp type: unspecified Qualified Code(s): K63.5 - Polyp of colon Plan: Continue to follow up with GI at recommended time. (2) Cervical cancer screening: Comment: 11/01/2023 Pap is negative with negative HPV Code(s): Z12.4 - Encounter for screening for malignant neoplasm of cervix Category: Medical Plan: Pap completed continue to follow with OBGYN (3) Breast cancer screening by mammogram: Code(s): Z12.31 - Encounter for screening mammogram for malignant neoplasm of breast Category: Medical Plan: Mammogram completed July 2023. She will be due this upcoming July. (4) Annual physical exam: Code(s): Z00.00 - Encounter for general adult medical examination without abnormal findings Category: Medical Plan: Patient is up-to-date on all recommended routine screenings and vaccinations for her age. Tetanus will be due in July. Blood work is up-to-date. Follow up on yearly basis. (5) GERD (gastroesophageal reflux disease): Code(s): K21.9 - Gastro-esophageal reflux disease without esophagitis Category: Medical Plan: Avoid trigger foods such as citrus, tomato products, soda, caffeine, spicy foods and other foods that may be irritating to your stomach. Avoid laying flat 3-4 hours after eating and elevate the head of the bed 30 degrees to prevent acid from moving into the esophagus. 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 Elayne Finn Code(s): F31.9 - Bipolar disorder, unspecified Category: Medical Plan: Continue on current medication and continue to follow with psychiatry. Patient's medications have lapsed due to issues with her psych provider and is requesting refills on her Topirimate and Trazodone until her psychiatric provider can resume the medications. Informed the patient we will give her a one month supply without refills. (7) Low vitamin D level: Code(s): R79.89 - Other specified abnormal findings of blood chemistry Category: Medical Plan: Continue to monitor with routine blood work. Plan This note was constructed using voice recognition software. While every effort has been made to ensure accuracy and training and development project leader, still areas may have been included sometimes these areas may affect the content or meeting of the given symptoms. Total time spent caring for the patient today was 30 minutes. This includes time spent before the visit reviewing the chart, time spent during the visit, and time spent after the visit and documentation. Orders: Orders Td State Immunization 06/23/24 Z23 - Encounter for immunization Basic Metabolic Panel 06/23/24 E87.6 - Hypokalemia Medications: New topiramate 200 mg in am and 100 mg in pm 30 tabs 0RF depressive disorder trazodone 150 mg PO BEDTIME 30 tabs 0RF topiramate 200 mg (2 x 100 mg) PO DAILY 30 tabs 0RF depressive disorder
== END 2024-06-23 16:52 | disposition home or self-care (01) ==
PROVIDERS: PCP Internal Medicine
DX: Z00.00 Encounter for general adult medical examination without abnormal findings (principal); K63.5 Polyp of colon; F31.9 Bipolar disorder, unspecified; Z12.31 Encounter for screening mammogram for malignant neoplasm of breast; K21.9 Gastro-esophageal reflux disease without esophagitis

== ENCOUNTER → 2024-06-23 16:04 | Outpatient (BNVA) | payer BC, SELFPAY | PROVIDERS: PCP Internal Medicine | DX: Z00.00 Encounter for general adult medical examination without abnormal findings (principal); Z23 Encounter for immunization; K21.9 Gastro-esophageal reflux disease without esophagitis; F31.9 Bipolar disorder, unspecified; E55.9 Vitamin D deficiency, unspecified; Z79.899 Other long term (current) drug therapy; Z86.0100 Personal history of colon polyps, unspecified | CPT/HCPCS: 90471; 90714; 96127 ==